=== PATIENT | female | born 1945 | race African-American/Black ===

== ENCOUNTER 2018-08-06 12:27 | Inpatient (IN) | payer MEDICARE, OTHER ==
[2018-08-06] MEDS ORDERED: SODIUM CHLORIDE 1,000 ML IV SCH (12:45)
[2018-08-06 13:14] LABS: BASO % 0.8 % (0-2.0); EOS % 4.3 % (0-4.5); HEMOGLOBIN 13.6 GM/dL (10.7-15.3); LYMPH % 20.7 % (8-40); MCH 29.4 pg (25.7-33.7); MCHC 34.1 g/dl (32.0-36.0); MEAN CELL VOLUME 86.4 fl (80-96); MEAN PLT VOLUME 10.1 fl (7.5-11.1); MONO % 9.5 % (3.8-10.2); NEUT % 64.7 % (42.8-82.8); PLATELET COUNT 170 K/MM3 (134-434); RBC 4.64 M/mm3 (3.60-5.2); RDW 13.4 % (11.6-15.6); WHITE BLOOD COUNT 7.1 K/mm3 (4.0-10.0)
[2018-08-06] MEDS ORDERED: DEXTROSE 50%-WATER 25 GM/50 ML DISP.SYRIN ONE (13:17)
--- NOTE | 2018-08-06 13:23 | PDOC ---
History of Present Illness <Martin Castro - Last Filed: 08/06/18 13:28> - History of Present Illness Initial Comments: 73yo F with PMH of HTN, HLD, DM presenting with altered mental status. Daughter reported that patient was opening [place] presents around 10:30am when she suddenly froze, was slow to respond to questions, and only able to answer yes or no. Daughter reports that the patient has slowly returned to her baseline and able to answer questions. Denies any motor deficits or unilateral weakness. No fevers, chills, chest pain, or shortness of breath. <Josie Waters - Last Filed: 08/06/18 18:39> - General Chief Complaint: Altered Mental Status Stated Complaint: R/O STROKE Time Seen by Provider: 08/06/18 12:40 NIH Stroke Scale - Last Known Well Date/Time & Onset Date Last Known Well: 08/06/18 Time Last Known Well: 10:30 - Initial Evaluation Level of consciousness: Alert Ask patient the month and their age: Answers both correctly Ask patient to open & close eyes; make fist and let go: Obeys both correctly Best gaze (horizontal eye movement): Normal Visual field testing: No visual field loss Facial paresis (Show teeth/raise eyebrows/close eyes tight): Normal symmetrical movement Motor Function: Left Arm: Normal Motor Function: Right Arm: Normal (extends arm 90 (or 45) degrees for 10 seconds without drift Motor Function: Left Leg: Normal (extends leg 30 degrees for 5 seconds without drift) Motor Function: Right Leg: Normal (extends leg 30 degrees for 5 seconds without drift) Limb Ataxia: No ataxia Sensory(Use pinprick test arms,legs,trunk,face/side to side): Normal Best language (Describe picture, name items, read sentences): No Aphasia Dysarthria (read several words): Normal articulation Extinction and Inattention: No abnormality - Total Score NIH Stroke Scale Score: 0 <Josie Waters - Last Filed: 08/06/18 18:39> tPA Exclusion Checklist 0-3hr - Time Elapsed Date last known well: 08/06/18 Time last known well: 10:30 Elaspsed time: Day(s) and 8 Hour(s) and 7 Minutes - Thrombolytic Therapy Candidate Is the patient eligible for Thrombolytic Therapy?: No - Exclusion Criteria 0-3hr SBP greater than 185 or DBP greater than 110mmHg despite tx: Yes Recent IC/spinal surgery,head trauma or stroke w/in last 3mo: No Hx of previous IC hemorrhage, IC neoplasm, AVM or aneurysm: No Active internal bleeding: No Blding diathesis(low plt ct, inc PTT,INR>1.7 or use of NOAC): No Symptoms suggest subarachnoid hemorrhage: No CT demonstrates multilobar infarct(>1/3 cerebral hemiphere): No Arterial puncture at noncompressible site in previous 7 days: No Blood glucose concentration less than 50mg/dL (2.7mmol/L): Yes - Relative Exclusion Criteria 0-3h Life expectancy <1yr/severe co-morbid illness/REFERRAL CLERK on admit: No : No Patient/family refused: No Rapid improvement: No Stroke severity too mild: No Recent acute [place] (w/in previous 3 months): No Seizure at onset with postictal residual neuro impairments: No Major surgery or serious trauma w/in previous 14 days: No Recent GI or hemorrhage (w/in previous 21 days): No - Ineligibility reason(s) Reasons No tPA given: See reason(s) noted above (glc=22, SBP>185, NIHSS 0 after D50 administration) <Josie Waters - Last Filed: 08/06/18 18:39> Past History <Martin Castro - Last Filed: 08/06/18 13:28> - Past Medical History COPD: No Diabetes: Yes HTN: Yes - Suicide/Smoking/Psychosocial Hx Smoking History: Never smoked Have you smoked in the past 12 months: No Information on smoking cessation initiated: No Hx Alcohol Use: No Drug/Substance Use Hx: No <Josie Waters - Last Filed: 08/06/18 18:39> - Past Medical History Allergies/Adverse Reactions: Allergies Allergy/AdvReac Type Severity Reaction Status Date / Time amlodipine [From [facility]] Allergy Verified 08/06/18 12:38 Home Medications: Ambulatory Orders Aspirin [ASA -] 325 mg PO DAILY 08/06/18 Glipizide 5 mg PO BID 08/06/18 Hydrochlorothiazide 25 mg PO DAILY 08/06/18 Lisinopril 20 mg PO BID 08/06/18 Simvastatin 10 mg PO HS 08/06/18 Review of Systems - Review of Systems Comments:: Constitutional: no fever, no chills HEENT: no throat pain, no dysphagia Cardiovascular: no chest pain, no palpitations Respiratory: no cough, no shortness of breath Gastrointestinal: no abdominal pain, no nausea, no vomiting Genitourinary: no dysuria, no frequency Musculoskeletal: no myalgia, no arthralgia Skin: no rash, no itching Neurologic: no headache, no dizziness <SoJosie - Last Filed: 08/06/18 18:39> *Physical Exam - Vital Signs Last Vital Signs Temp Pulse Resp BP Pulse Ox 97.5 F L 49 L 16 248/97 H 100 08/06/18 12:34 08/06/18 12:34 08/06/18 12:34 08/06/18 12:34 08/06/18 12:34 <Ou,Martin - Last Filed: 08/06/18 13:28> - Vital Signs Last Vital Signs Temp Pulse Resp BP Pulse Ox 97.5 F L 49 L 16 248/97 H 100 08/06/18 12:34 08/06/18 12:34 08/06/18 12:34 08/06/18 12:34 08/06/18 12:34 - Physical Exam Comments: General: Awake, alert, and fully oriented, in no acute distress Head: No signs of trauma Eyes: EOMI, sclera anicteric ENT: Moist mucus membranes Neck: Normal ROM, supple Lungs: Lungs clear, Normal breath sounds Cardio: Regular rhythm, S1 and S2 present Abdomen: Soft, nontender. No guarding, no rebound, no masses Extremities: Normal range of motion, Distal pulses present SKIN: Warm, Dry, normal turgor Neurologic: Cranial nerves II through XII intact. Normal speech, sensation, strength, coordination. NIHSS 0 <SoLauraJosie - Last Filed: 08/06/18 18:39> Moderate Sedation - Procedure Monitoring Vital Signs: Procedure Monitoring Vital Signs Temperature 97.5 F L 08/06/18 12:34 Pulse Rate 49 L 08/06/18 12:34 Respiratory Rate 16 08/06/18 12:34 Blood Pressure 248/97 H 08/06/18 12:34 O2 Sat by Pulse Oximetry (%) 100 08/06/18 12:34 <Ou,Martin - Last Filed: 08/06/18 13:28> - Procedure Monitoring Vital Signs: Procedure Monitoring Vital Signs Temperature 97.5 F L 08/06/18 12:34 Pulse Rate 49 L 08/06/18 12:34 Respiratory Rate 16 08/06/18 12:34 Blood Pressure 248/97 H 08/06/18 12:34 O2 Sat by Pulse Oximetry (%) 100 08/06/18 12:34 <Josie Waters - Last Filed: 08/06/18 18:39> ED Treatment Course - LABORATORY CBC & Chemistry Diagram: 08/06/18 13:09 08/06/18 13:09 - ADDITIONAL ORDERS Additional order review: 08/06/18 13:09 RBC 4.64 MCV 86.4 MCHC 34.1 RDW 13.4 MPV 10.1 Neutrophils % 64.7 Lymphocytes % 20.7 Monocytes % 9.5 Eosinophils % 4.3 Basophils % 0.8 - RADIOLOGY Radiology Studies Ordered: Category Date Time Status HEAD CT (STROKE) [CT] Stat CT Scan 08/06/18 12:41 Completed <Martin Castro - Last Filed: 08/06/18 13:28> - LABORATORY CBC & Chemistry Diagram: 08/06/18 13:09 08/06/18 13:09 - ADDITIONAL ORDERS Additional order review: 08/06/18 13:09 RBC 4.64 MCV 86.4 MCHC 34.1 RDW 13.4 MPV 10.1 Neutrophils % 64.7 Lymphocytes % 20.7 Monocytes % 9.5 Eosinophils % 4.3 Basophils % 0.8 <Josie Waters - Last Filed: 08/06/18 18:39> Medical Decision Making - Medical Decision Making 73yo F with PMH of HTN, HLD, DM presenting with altered mental status. Code Snell initiated CT head negative Initial NIHSS was 2 (patient unable to state her age, along with moderate aphasia) Found to have glucose 22, D50 given Repeat NIHSS 0 Patient hypertensive, 248/97 on triage Hydralazine 10 given, still systolic >250 Nitro drip initiated, systolic now 190s Repeat glc [address] Ortiz, timber management assistant, who agrees with current nitro drip. 08/06/18 13:27 EKG: rate 64, QTc 453, sinus rhythm with flipped t waves in lateral distribution (no priors) Tpn=0.15, elevated No leukocytosis or anemia, Cr=1.9, elevated, Plan to admit to ICU for hypertensive emergency. While patient does not have acute complaints, her confusion, elevated Tpn and Cr indicate signs of end- organ damage. 08/06/18 14:51 Discussed case with hospitalist team who accepted patient for admission under Dr. Cardona Discussed case with ICU team who accepted patient for ICU admission under Dr. Jason 08/06/18 15:13 Repeat Tpn ordered and sent 08/06/18 18:35 <Josie Waters - Last Filed: 08/06/18 18:39> *DC/Admit/Observation/Transfer <Martin Castro - Last Filed: 08/06/18 13:28> - Discharge Dispostion Decision to Admit order: Yes <Josie Waters - Last Filed: 08/06/18 18:39> Diagnosis at time of Disposition: Hypertensive emergency - Discharge Dispostion Condition at time of disposition: Guarded
[2018-08-06 13:29] LABS: INR 1.08 (0.83-1.09); PROTHROMBIN TIME (PATIENT) 12.7 SEC (9.7-13.0)
[2018-08-06] MEDS ORDERED: DEXTROSE 50%-WATER - 25 GM/50 ML VIAL IVPUSH ONE (13:29)
--- NOTE | 2018-08-06 13:40 | PDOC ---
Attending Attestation - Resident Resident Name: Josie Waters - ED Attending Attestation I have performed the following: I have examined & evaluated the patient, The case was reviewed & discussed with the resident, I agree w/resident's findings & plan, Exceptions are as noted - HPI HPI: 08/06/18 13:38 The patient is a 73-year-old female with a past medical history significant for DM, HTN, HLD presents to the emergency department accompanied by her daughter with altered mental status. Per daughter, at 10:30 am, the family was opening presents when patient "froze", sitting still and staring into space. Pt was still responsive but very slow to answer. The daughter reports the patient was only responding to yes or no questions. Prior to 10:30am, pt was at her baseline mentation. The daughter reports a similar incident about 4 months ago, the patient froze for 15 minutes, before spontaneously resolving. DId not seek medical attention at the time. Denies fever, chills, chest pain, numbness, tingling, diaphoresis. Allergies: amlodipine Social history: No past or present use of tobacco, alcohol or recreational drug use. PCP: None reported. - Physicial Exam PE: 08/06/18 13:38 "GENERAL: Awake, alert, and fully oriented, in no acute distress. HEAD: No signs of trauma EYES: PERRLA, EOMI, sclera anicteric, conjunctiva clear ENT: Auricles normal inspection, hearing grossly normal, nares patent, oropharynx clear without exudates. Moist mucosa NECK: Nontender, no stepoffs, Normal ROM, supple, no lymphadenopathy, JVD, or masses LUNGS: Breath sounds equal, clear to auscultation bilaterally. No wheezes, and no crackles HEART: Regular rate and rhythm, normal S1 and S2, no murmurs, rubs or gallops ABDOMEN: Soft, nontender, normoactive bowel sounds. No guarding, no rebound. No masses EXTREMITIES: Normal range of motion, no edema. No clubbing or cyanosis. No cords, erythema, or tenderness NEUROLOGICAL: Cranial nerves II through XII intact. 5/5 strength and sensation in all extremities, Normal speech, normal gait, normal cerebellar function SKIN: Warm, Dry, normal turgor, no rashes or lesions noted. - Critical Care Time Total Critical Care Time: 120 Critical Care Statement: The care of this patient involved high complexity decision making to prevent further life threatening deterioration of the patient 's condition and/or to evaluate & treat vital organ system(s) failure or risk of failure. - Medical Decision Making 08/06/18 13:39 73 F with acute onset altered mental status, found to be mildly aphasic in ED without any other neuro deficits. Pt with fingerstick 22, likely etiology of pt' s AMS. Pt within window for tPA but NIHSS only 1 and pt hypoglycemic. tPA contraindicated at this time. - Labs - CT head - D50 PRN - Reassess 08/06/18 13:[address] negative Repeat exam after D50 push now normal, NIHSS 0. Pt persistently HTN in ED, with SBP >260. Will administer hydralazine now. Pt denies CP/SOB. Denies JUAREZ. 08/06/18 14:03 Pt with + troponin 0.15 EKG shows TWI in lateral leads, no prior to compare Will tx as hypertensive emergency Will initiate nitro gtt, give aspirin 08/06/18 15:11 Dr. Ortiz consulted, agrees with nitro gtt, will administer PO meds as well. Pt admitted to hospitalist NIH Stroke Scale - Last Known Well Date/Time & Onset Date Last Known Well: 08/06/18 Time Last Known Well: 10:30 - Initial Evaluation Level of consciousness: Alert Ask patient the month and their age: Answers both correctly Ask patient to open & close eyes; make fist and let go: Obeys both correctly Best gaze (horizontal eye movement): Normal Visual field testing: No visual field loss Facial paresis (Show teeth/raise eyebrows/close eyes tight): Normal symmetrical movement Motor Function: Left Arm: Normal Motor Function: Right Arm: Normal (extends arm 90 (or 45) degrees for 10 seconds without drift Motor Function: Left Leg: Normal (extends leg 30 degrees for 5 seconds without drift) Motor Function: Right Leg: Normal (extends leg 30 degrees for 5 seconds without drift) Limb Ataxia: No ataxia Sensory(Use pinprick test arms,legs,trunk,face/side to side): Normal Best language (Describe picture, name items, read sentences): Mild to moderate aphasia Dysarthria (read several words): Normal articulation Extinction and Inattention: No abnormality - Total Score NIH Stroke Scale Score: 1
[2018-08-06] MEDS ORDERED: hydrALAZINE HCL 20 MG/ML VIAL IVPUSH ONE ×2 (13:46→14:11)
[2018-08-06 13:49] LABS: ALBUMIN 3.6 g/dl (3.4-5.0); ALK PHOS 67 U/L (45-117); ANION GAP 10 MMOL/L (8-16); BILIRUBIN,TOTAL 0.4 mg/dL (0.2-1); BLOOD UREA NITROGEN 36 mg/dL (7-18); CALCIUM 8.6 mg/dL (8.5-10.1); CHLORIDE 105 mmol/L (98-107); CHOLESTEROL 174 mg/dL (50-200); CO2 27 mmol/L (21-32); CREATININE 1.9 mg/dL (0.55-1.3); HDL CHOLESTEROL 97 mg/dL (40-60); SGOT/AST 35 U/L (15-37); SGPT/ALT 23 U/L (13-61); SODIUM 142 mmol/L (136-145); TOT PROT 7.9 g/dl (6.4-8.2); TRIGLYCERIDES 74 mg/dL (0-150)
[2018-08-06] MEDS ORDERED: hydrALAZINE HCL 20 MG/ML VIAL ONE (13:58)
[2018-08-06 14:05] LABS: GLUCOSE,RANDOM 31 mg/dL (74-106)
[2018-08-06] MEDS ORDERED: NITROGLYCERIN 25MG/D5W 250ML 25 MG/250 ML ML IVPB ONE (14:14)
[2018-08-06] MEDS: NITROGLYCERIN 25MG/D5W 250ML 25 MG/250 ML ML IVPB SCH (14:27)
[2018-08-06 14:29] LABS: URINE APPEARANCE CLEAR; URINE BILIRUBIN NEGATIVE (<2.0 mg/dL); URINE COLOR STRAW; URINE GLUCOSE (UA) 2+ (NEGATIVE); URINE KETONE NEGATIVE (NEGATIVE); URINE LEUK ESTERASE NEGATIVE (NEGATIVE); URINE NITRITE NEGATIVE (NEGATIVE); URINE PROTEIN NEGATIVE (NEGATIVE); URINE UROBILINOGEN NEGATIVE mg/dL (0.2-1.0)
--- NOTE | 2018-08-06 15:28 | CONSULT ---
Consultation: REQUESTING PROVIDER: Dr. Castro CONSULT REQUEST: Evaluation for hypertensive emergency requiring a Nitro gtt HISTORY OF PRESENT ILLNESS: The patient is a 73F w/ a history of HTN, T2DM, HLD, MVP who presents for evaluation of a sudden onset episode where she felt 'frozen'. She states she has never has an experience like this before. She describes it as feeling as though she was unable to move as usual. However, she was still able to speak throughout the experience and per both the patient and the daughter, she never lost consciousness nor did she fall. Upon presentation to the ED, the patient was found to be altered and hypoglycemic. The patient was given dextrose and her subsequent NIHSS was 0. Upon evaluation, she denies any symptoms including JUAREZ, vision changes, chest pain, SOB, N/V, or dizziness. Of note, patient reports being compliant w/ antihypertensive medications at home. (Lisinopril/HCTZ). Was on labetalol in the past. PMH: HTN, T2DM, HLD, MVP PSH: Oral lesion removal, partial HYS SH: denies tobacco use, social EtOH, denies illicit drug use REVIEW OF SYSTEMS: GENERAL/CONSTITUTIONAL: No fever or chills. No weakness HEAD, EYES, EARS, NOSE AND THROAT: No change in vision. No ear pain or discharge. No sore throat CARDIOVASCULAR: No chest pain or shortness of breath RESPIRATORY: Denies cough, hemoptysis GASTROINTESTINAL: No nausea, vomiting, diarrhea or constipation GENITOURINARY: No dysuria, frequency, or change in urination MUSCULOSKELETAL: No joint or muscle swelling or pain. No neck or back pain SKIN: No rash NEUROLOGIC: No vertigo, loss of consciousness, or change in strength/sensation ENDOCRINE: No increased thirst. No abnormal weight change HEMATOLOGIC/LYMPHATIC: No anemia, easy bleeding, or history of blood clots ALLERGIC/IMMUNOLOGIC: No hives or skin allergy PHYSICAL EXAMINATION Vital Signs - 24 hr 08/06/18 08/06/18 08/06/18 12:34 14:11 14:28 Temperature 97.5 F L Pulse Rate 49 L Pulse Rate [ 80 Apical] Respiratory 16 16 Rate Blood Pressure 248/97 H Blood Pressure 260/124 H 197/96 H [Right Arm] O2 Sat by Pulse 100 100 Oximetry (%) GENERAL: Awake, alert, and fully oriented, in no acute distress HEAD: No signs of trauma, normocephalic, atraumatic EYES: PERRLA, EOMI, sclera anicteric, conjunctiva clear ENT: Hearing grossly normal, nares patent, oropharynx clear without exudates. Moist mucosa LUNGS: No distress, speaks full sentences, clear to auscultation bilaterally HEART: Regular rate and rhythm, normal S1 and S2, no murmurs appreciated, peripheral pulses normal and equal bilaterally ABDOMEN: Soft, nontender, normoactive bowel sounds. No guarding, no rebound EXTREMITIES : Normal inspection, Normal range of motion, no edema. No clubbing or cyanosis NEUROLOGICAL: Cranial nerves II through XII grossly intact. Normal speech, no focal sensorimotor deficits SKIN: Warm, Dry Active Medications Generic Name Dose Route Start Last Admin Trade Name Freq PRN Reason Stop Dose Admin Chlorhexidine Gluconate 1 applic 08/06/18 22:00 Hibiclens For Decolonization - TP HS CHAIM Sodium Chloride 1,000 mls @ 42 mls/hr 08/06/18 12:45 08/06/18 14:27 Normal Saline - IV 42 mls/hr ASDIR CHAIM Administration Nitroglycerin/Dextrose 25 mg in 250 mls @ 6 mls/hr 08/06/18 14:15 08/06/18 14 :27 Nitroglycerin 25mg/D5w 250ml IVPB 10 mcg/min TITR CHAIM 6 mls/hr Administration 10 MCG/MIN Insulin Aspart 0 vial 08/06/18 16:30 Novolog Vial Sliding Scale - SQ [facility]S [facility] Protocol Mupirocin 1 applic 08/06/18 22:00 Bactroban Ointment (For Decolonization) - NS 08/11/18 21:59 BID CHAIM ASSESSMENT/PLAN: The patient is a 73F w/ a history HTN, HLD, and MVP who presents for evaluation of hypertensive emergency, BP 248/97 on arrival w/ associated troponinemia. The patient was initially given hydralazine with little effect and was subsequently started on a nitro gtt with interval improvement to SBP 190s. Ddx: stroke v TIA, hypoglycemia, HTN emergency; possible lyte abn, however lytes at baseline in ED Neuro AMS -A&Ox3 -CT Head w/o evidence of bleed -Pt pending MRI for further evaluation Denies pain currently CV Hypertensive Emergency -Cont. Nitro gtt -Goal SBP 190s initially -Repeat Trop I and ECG Troponinemia (0.15) -Likely demand ischemia -Will repeat Trop I and ECG -Denies chest pain, SOB, dizziness, or vision changes HLD -Continue home simvastatin PULM Breathing comfortably on room air, will CTM JESSE -Cr 1.9 -Will hold home lisinopril HEME No anemia, will CTM DVT Ppx -Lovenox 40mg SQ daily ID Afebrile, no leukocytosis ENDO T2DM -Will hold home glipizide -ISS -BGM Hypoglycemia -BG 31, s/p dextrose, resolved -Hold home glipizide today LTD PIV Dispo: Patient will require ICU level of care for acute management of hypertensive emergency Visit type - Emergency Visit Emergency Visit: Yes ED Registration Date: 08/06/18 Care time: The patient presented to the Emergency Department on the above date and was hospitalized for further evaluation of their emergent condition. - New Patient This patient is new to me today: Yes Date on this admission: 08/06/18 - Critical Care Critical Care patient: Yes Total Critical Care Time (in minutes): 35 Critical Care Statement: The care of this patient involved high complexity decision making to prevent further life threatening deterioration of the patient 's condition and/or to evaluate & treat vital organ system(s) failure or risk of failure.
--- NOTE | 2018-08-06 15:45 | CON.NEURO ---
Consult Consult Specialty:: Natan Referred by:: PCP Reason for Consultation:: Aphasia - History of Present Illness History of Present Illness: this is a very pleasant 73-year-old right-handed -[place] woman who lives in [place] retired was visiting her daughter for holiday in [facility] when she had sudden onset of altered sensorium and difficulty expressing herself. Patient was brought into the hospital in the emergency room stroke protocol was initiated CAT scan of the head was negative for any acute pathology. Patient was noted to be hemodynamically unstable with a blood pressure systolic above 200. Patient was not complaining of any headache patient was noted to have fingerstick of 22. Patient received glucose with good reversal of her symptoms. Patient was not a good candidate for TPA given the fact that her NIH stroke scale was 2 that was reversed with a sugar correction. I interviewed the patient in the emergency room at 3:10 PM. The daughter was at the bedside. Registered nurse she affirms that the patient's back to normal. No report of any recent travel no report of any recent head trauma. He shouldn't denies any chest pain mild headache. Patient wants to go home initially and after conversation with the patient she agreed to stay for monitoring repeat blood pressure was in the 190s systolic. - History Source History Provided By: Patient Limitations to Obtaining History: No Limitations - Alcohol/Substance Use Hx Alcohol Use: No - Smoking History Smoking history: Never smoked Have you smoked in the past 12 months: No Home Medications - Allergies Allergies/Adverse Reactions: Allergies Allergy/AdvReac Type Severity Reaction Status Date / Time amlodipine [From [facility]] Allergy Verified 08/06/18 12:38 - Home Medications Home Medications: Ambulatory Orders Aspirin [ASA -] 325 mg PO DAILY 08/06/18 Glipizide 5 mg PO BID 08/06/18 Hydrochlorothiazide 25 mg PO DAILY 08/06/18 Lisinopril 20 mg PO BID 08/06/18 Simvastatin 10 mg PO HS 08/06/18 Family Disease History - Family Disease History Family History: Denies (strokes) Review of Systems - Review of Systems Constitutional: reports: No Symptoms Eyes: reports: No Symptoms Neurological: reports: Headache, Incoordination Physical Exam-Neuro Vital Signs: Vital Signs Temperature 97.5 F L 08/06/18 12:34 Pulse Rate 80 08/06/18 14:28 Respiratory Rate 16 08/06/18 14:28 Blood Pressure 197/96 H 08/06/18 14:28 O2 Sat by Pulse Oximetry (%) 100 08/06/18 14:28 Constitutional: Yes: Well Nourished Neck: Yes: WNL Cardiovascular: Yes: WNL Labs: CBC, BMP 08/06/18 13:09 08/06/18 13:09 INR, PTT INR 1.08 (0.83-1.09) 08/06/18 13:09 - Neuro Exam Level Of Consciousness: Yes: Oriented to Person, Oriented to Place, Oriented to Time Eyes: Yes: PERRLA Speech: WNL Dominant Hand: Right Cranial Nerves II-XII Intact: Yes Gag: Present DTR's: 1+ Left Bicep, 1+ Right Bicep, 1+ Left Tricep Response to pain prick: Abnormal Response to temperature: Abnormal Response to vibration: Abnormal Motor Strength: 3/5: Left Arm, Right Arm, Left Leg, Right Leg Gait: Deferred NIH Stroke Scale - Last Known Well Date/Time & Onset Date Last Known Well: 08/06/18 Time Last Known Well: 10:30 - Initial Evaluation Level of consciousness: Alert Ask patient the month and their age: Answers both correctly Ask patient to open & close eyes; make fist and let go: Obeys both correctly Best gaze (horizontal eye movement): Normal Visual field testing: No visual field loss Facial paresis (Show teeth/raise eyebrows/close eyes tight): Normal symmetrical movement Motor Function: Left Arm: Normal Motor Function: Right Arm: Normal (extends arm 90 (or 45) degrees for 10 seconds without drift Motor Function: Left Leg: Normal (extends leg 30 degrees for 5 seconds without drift) Motor Function: Right Leg: Normal (extends leg 30 degrees for 5 seconds without drift) Limb Ataxia: No ataxia Sensory(Use pinprick test arms,legs,trunk,face/side to side): Normal Best language (Describe picture, name items, read sentences): No Aphasia Dysarthria (read several words): Normal articulation Extinction and Inattention: No abnormality - Total Score NIH Stroke Scale Score: 0 Imaging - Results Cat Scan: Image Reviewed Problem List - Problems (1) TIA (transient ischemic attack) Assessment/Plan: 1. Admit to the monitored setting. 2. Tight blood pressure control. 3. MRI of the brain with no contrast. 4. DVT prophylaxis SCDs 5. echocardiogram. 6. Continue the full aspirin. 7. Continue statin 8. Speech and swallow evaluation. Code(s): G45.9 - TRANSIENT CEREBRAL ISCHEMIC ATTACK, UNSPECIFIED (2) Hypertensive emergency Assessment/Plan: tight blood pressure control. 2. Decrease salt intake. 3. Suggest renal artery ultrasound. 4. Stroke education. Code(s): I16.1 - HYPERTENSIVE EMERGENCY
--- NOTE | 2018-08-06 15:57 | PN ---
Teaching Attending Note Name of Resident: Gurpreet Alejo ATTENDING PHYSICIAN STATEMENT I saw and evaluated the patient. I reviewed the resident's note and discussed the case with the resident. I agree with the resident's findings and plan as documented. SUBJECTIVE: Patient is a 73 yo F with a PMHx of HTN, DM, HLD, who presented to the ED because of confusion and altered mental status that occurred around 10:30am. Patient was found to have low blood sugar in ed. level was 37 received D50. was back to her normal sense, also was found to have blood pleasure of 240's/120 's. OBJECTIVE: Initial Vital Signs Temp Pulse Resp BP Pulse Ox 97.5 F L 49 L 16 248/97 H 100 08/06/18 12:34 08/06/18 12:34 08/06/18 12:34 08/06/18 12:34 08/06/18 12:34 Vital Signs Temperature 97.5 F L 08/06/18 12:34 Pulse Rate 80 08/06/18 14:28 Respiratory Rate 16 08/06/18 14:28 Blood Pressure 197/96 H 08/06/18 14:28 O2 Sat by Pulse Oximetry (%) 100 08/06/18 14:28 GENERAL: Awake, alert, and fully oriented, in no acute distress. EYES: Pupils equal, round and reactive to light, extraocular movements intact, injected pupils EARS, NOSE, THROAT: oropharynx clear without exudates. Moist mucous membranes. NECK: supple without lymphadenopathy, JVD, or masses. LUNGS: Breath sounds equal, clear to auscultation bilaterally HEART: Regular rate and rhythm, normal S1 and S2 without murmur, rub or gallop. ABDOMEN: Soft, nontender, not distended, normoactive bowel sounds MUSCULOSKELETAL: Normal range of motion at all joints. No bony deformities or tenderness. No CVA tenderness. EXTREMITIES: 2+ pulses, warm, well-perfused. No cyanosis. No peripheral edema. NEUROLOGICAL: Cranial nerves II-XII intact. Normal speech. no facial droop. symmetrical face. PSYCHIATRIC: Cooperative. Good eye contact. Appropriate mood and affect. Current Medications Generic Name Dose Route Start Last Admin Trade Name Freq PRN Reason Stop Dose Admin Chlorhexidine Gluconate 1 applic 08/06/18 22:00 Hibiclens For Decolonization - TP HS CHAIM Sodium Chloride 1,000 mls @ 42 mls/hr 08/06/18 12:45 08/06/18 14:27 Normal Saline - IV 42 mls/hr ASDIR CHAMI Administration Nitroglycerin/Dextrose 25 mg in 250 mls @ 6 mls/hr 08/06/18 14:15 08/06/18 14 :27 Nitroglycerin 25mg/D5w 250ml IVPB 10 mcg/min TITR CHAIM 6 mls/hr Administration 10 MCG/MIN Insulin Aspart 1 vial 08/06/18 16:30 Novolog Vial Sliding Scale - SQ ACHS [facility] Protocol Mupirocin 1 applic 08/06/18 22:00 Bactroban Ointment (For Decolonization) - NS 08/11/18 21:59 BID [facility] Home Medications Medication Instructions Recorded Aspirin [ASA -] 325 mg PO DAILY 08/06/18 Glipizide 5 mg PO BID 08/06/18 Hydrochlorothiazide 25 mg PO DAILY 08/06/18 Lisinopril 20 mg PO BID 08/06/18 Simvastatin 10 mg PO HS 08/06/18 CBCD WBC 7.1 K/mm3 (4.0-10.0) 08/06/18 13:09 RBC 4.64 M/mm3 (3.60-5.2) 08/06/18 13:09 Hgb 13.6 GM/dL (10.7-15.3) 08/06/18 13:09 Hct 40.0 % (32.4-45.2) 08/06/18 13:09 MCV 86.4 fl (80-96) 08/06/18 13:09 MCHC 34.1 g/dl (32.0-36.0) 08/06/18 13:09 RDW 13.4 % (11.6-15.6) 08/06/18 13:09 Plt Count 170 K/MM3 (134-434) 08/06/18 13:09 MPV 10.1 fl (7.5-11.1) 08/06/18 13:09 CMP Sodium 142 mmol/L (136-145) 08/06/18 13:09 Potassium 3.0 mmol/L (3.5-5.1) L 08/06/18 13:09 Chloride 105 mmol/L (98-107) 08/06/18 13:09 Carbon Dioxide 27 mmol/L (21-32) 08/06/18 13:09 Anion Gap 10 MMOL/L (8-16) 08/06/18 13:09 BUN 36 mg/dL (7-18) H 08/06/18 13:09 Creatinine 1.9 mg/dL (0.55-1.3) H 08/06/18 13:09 Creat Clearance w eGFR 26.06 (>60) 08/06/18 13:09 Random Glucose 31 mg/dL (74-106) L* 08/06/18 13:09 Calcium 8.6 mg/dL (8.5-10.1) 08/06/18 13:09 Total Bilirubin 0.4 mg/dL (0.2-1) 08/06/18 13:09 AST 35 U/L (15-37) 08/06/18 13:09 ALT 23 U/L (13-61) 08/06/18 13:09 Alkaline Phosphatase 67 U/L (45-117) 08/06/18 13:09 Total Protein 7.9 g/dl (6.4-8.2) 08/06/18 13:09 Albumin 3.6 g/dl (3.4-5.0) 08/06/18 13:09 CARDIAC ENZYMES Creatine Kinase 267 IU/L (26-192) H 08/06/18 13:09 Troponin I 0.13 ng/ml (0.00-0.05) H 08/06/18 18:01 ASSESSMENT AND PLAN: Patient is a 73yo Female with a PMHx of HTN, DM, HLD, who presented to the ED because of acute change of mental status confusion and altered mental status and was found to have hypertensive emergency and low blood sugar. #Acute change mental status due to having hypoglycemia and hypertensive emergency. patient is on Glyberide at home, might need to reduce the dose since can cause hypoglycemia and add metformin to her regimen. will admit her in ICU , start her nitro drip since was found to have an ischemic changes on the EKG . aspirin, neuro check, cardio consult dr. cabrera. #Hypertensive Emergency: on Nitro srip continue #Hypoglycemia: D50 given, careful upon discharge , reduce the dose of glyberide to 2.5mg and add metformin since shari't cause hypoglycemia. monitor kidney function. ss scale with coverage #Elevated troponin: likely demand, EKG with T wave inversions in lateral leads, with no priors to compare ECHO in AM #JESSE , nephro in the case . IV fluids, hold lisinopril VT ppx: heparin sq Dispo: ICU monitoring
--- NOTE | 2018-08-06 16:08 | HP ---
CHIEF COMPLAINT: AMS HISTORY OF PRESENT ILLNESS: Patient is a 73 yo F with a PMHx of HTN, DM, HLD, who presented to the ED because of confusion and altered mental status that occurred around 10:30am. The daughter says patient was awake but not responsive to commands for a few hours. The daughter states her mother "froze" while opening Vilma presents and was staring into space. Patient says her hypertension is usually well controlled with Lisinopril and HCTZ. She says this never happened to her before. Daughter denies shaking movements, tongue biting, loss of bladder control. Patient denies weakness, numbness, tingling, chest pain , palpitations, sob, edema, fevers. ER course was notable for: (1) Pt persistently HTN in ED, with SBP >260 (2) Glucose 31 (3) Head CT unremarkable Recent Travel: n/a PAST MEDICAL HISTORY: per hpi Social History: Smoking: denies Alcohol:denies Drugs: denies Family History: Allergies amlodipine [From [facility]] Allergy (Verified 08/06/18 12:38) HOME MEDICATIONS: Home Medications Medication Instructions Recorded Aspirin [ASA -] 325 mg PO DAILY 08/06/18 Glipizide 5 mg PO BID 08/06/18 Hydrochlorothiazide 25 mg PO DAILY 08/06/18 Lisinopril 20 mg PO BID 08/06/18 Simvastatin 10 mg PO HS 08/06/18 REVIEW OF SYSTEMS CONSTITUTIONAL: Absent: fever, chills, diaphoresis, generalized weakness, malaise, loss of appetite, weight change HEENT: Absent: rhinorrhea, nasal congestion, throat pain, throat swelling, difficulty swallowing, mouth swelling, ear pain, eye pain, visual changes CARDIOVASCULAR: Absent: chest pain, syncope, palpitations, irregular heart rate, lightheadedness , peripheral edema RESPIRATORY: Absent: cough, shortness of breath, dyspnea with exertion, orthopnea, wheezing, stridor, hemoptysis GASTROINTESTINAL: Absent: abdominal pain, abdominal distension, nausea, vomiting, diarrhea, constipation, melena, hematochezia GENITOURINARY: Absent: dysuria, frequency, urgency, hesitancy, hematuria, flank pain, genital pain MUSCULOSKELETAL: Absent: myalgia, arthralgia, joint swelling, back pain, neck pain SKIN: Absent: rash, itching, pallor HEMATOLOGIC/IMMUNOLOGIC: Absent: easy bleeding, easy bruising, lymphadenopathy, frequent infections ENDOCRINE: Absent: unexplained weight gain, unexplained weight loss, heat intolerance, cold intolerance NEUROLOGIC: Absent: headache, focal weakness or paresthesias, dizziness, unsteady gait, seizure, mental status changes, bladder or bowel incontinence PSYCHIATRIC: Absent: anxiety, depression, suicidal or homicidal ideation, hallucinations. PHYSICAL EXAMINATION Vital Signs - 24 hr 08/06/18 08/06/18 08/06/18 12:34 14:11 14:28 Temperature 97.5 F L Pulse Rate 49 L Pulse Rate [ 80 Apical] Respiratory 16 16 Rate Blood Pressure 248/97 H Blood Pressure 260/124 H 197/96 H [Right Arm] O2 Sat by Pulse 100 100 Oximetry (%) GENERAL: Awake, alert, and fully oriented, in no acute distress. EYES: Pupils equal, round and reactive to light, extraocular movements intact, injected pupils EARS, NOSE, THROAT: oropharynx clear without exudates. Moist mucous membranes. NECK: supple without lymphadenopathy, JVD, or masses. LUNGS: Breath sounds equal, clear to auscultation bilaterally HEART: Regular rate and rhythm, normal S1 and S2 without murmur, rub or gallop. ABDOMEN: Soft, nontender, not distended, normoactive bowel sounds MUSCULOSKELETAL: Normal range of motion at all joints. No bony deformities or tenderness. No CVA tenderness. UPPER EXTREMITIES: 2+ pulses, warm, well-perfused. No cyanosis. No peripheral edema. LOWER EXTREMITIES: 2+ pulses, warm, well-perfused. No calf tenderness. No peripheral edema. NEUROLOGICAL: Cranial nerves II-XII intact. Normal speech. no facial droop. symmetrical face. PSYCHIATRIC: Cooperative. Good eye contact. Appropriate mood and affect. Laboratory Results - last 24 hr 08/06/18 08/06/18 08/06/18 13:09 13:09 13:09 WBC 7.1 RBC 4.64 Hgb 13.6 Hct 40.0 MCV 86.4 MCH 29.4 MCHC 34.1 RDW 13.4 Plt Count 170 MPV 10.1 Absolute Neuts (auto) 4.6 Neutrophils % 64.7 Lymphocytes % 20.7 Monocytes % 9.5 Eosinophils % 4.3 Basophils % 0.8 Nucleated RBC % 0 PT with INR 12.70 INR 1.08 Sodium 142 Potassium 3.0 L Chloride 105 Carbon Dioxide 27 Anion Gap 10 BUN 36 H Creatinine 1.9 H Creat Clearance w eGFR 26.06 POC Glucometer Random Glucose 31 L* Calcium 8.6 Total Bilirubin 0.4 AST 35 ALT 23 Alkaline Phosphatase 67 Creatine Kinase 267 H Creatine Kinase Index 1.5 CK-MB (CK-2) 4.2 H Troponin I 0.15 H Total Protein 7.9 Albumin 3.6 Triglycerides 74 Cholesterol 174 Total LDL Cholesterol 60 HDL Cholesterol 97 H Urine Color Urine Appearance Urine pH Ur Specific Grimsley Urine Protein Urine Glucose (UA) Urine Ketones Urine Blood Urine Nitrite Urine Bilirubin Urine Urobilinogen Ur Leukocyte Esterase Blood Type Antibody Screen 08/06/18 08/06/18 08/06/18 13:09 13:16 14:10 WBC RBC Hgb Hct MCV MCH MCHC RDW Plt Count MPV Absolute Neuts (auto) Neutrophils % Lymphocytes % Monocytes % Eosinophils % Basophils % Nucleated RBC % PT with INR INR Sodium Potassium Chloride Carbon Dioxide Anion Gap BUN Creatinine Creat Clearance w eGFR POC Glucometer < 50 Random Glucose Calcium Total Bilirubin AST ALT Alkaline Phosphatase Creatine Kinase Creatine Kinase Index CK-MB (CK-2) Troponin I Total Protein Albumin Triglycerides Cholesterol Total LDL Cholesterol HDL Cholesterol Urine Color Straw Urine Appearance Clear Urine pH 6.0 Ur Specific Grimsley 1.011 Urine Protein Negative Urine Glucose (UA) 2+ H Urine Ketones Negative Urine Blood Negative Urine Nitrite Negative Urine Bilirubin Negative Urine Urobilinogen Negative Ur Leukocyte Esterase Negative Blood Type AB POSITIVE Antibody Screen Negative 08/06/18 14:34 WBC RBC Hgb Hct MCV MCH MCHC RDW Plt Count MPV Absolute Neuts (auto) Neutrophils % Lymphocytes % Monocytes % Eosinophils % Basophils % Nucleated RBC % PT with INR INR Sodium Potassium Chloride Carbon Dioxide Anion Gap BUN Creatinine Creat Clearance w eGFR POC Glucometer [phone] Random Glucose Calcium Total Bilirubin AST ALT Alkaline Phosphatase Creatine Kinase Creatine Kinase Index CK-MB (CK-2) Troponin I Total Protein Albumin Triglycerides Cholesterol Total LDL Cholesterol HDL Cholesterol Urine Color Urine Appearance Urine pH Ur Specific Grimsley Urine Protein Urine Glucose (UA) Urine Ketones Urine Blood Urine Nitrite Urine Bilirubin Urine Urobilinogen Ur Leukocyte Esterase Blood Type Antibody Screen ASSESSMENT/PLAN: 73 yo F with a PMHx of HTN, DM, HLD, who presented to the ED because of confusion and altered mental status and was found to have hypertensive emergency. #AMS -likely from HTN emergency vs TIA vs Hypoglycemia -ICU monitoring -Head CT neg -FU brain MRI -NIH score 2 -ASA 325mg -Statin -speech/swallow -bcx, ucx -echo -tight glucose control -neuro checks q2 #Hypertensive Emergency -Head CT neg -Hydralazine 10mg IV 1x in ED -Nitro drip -EKG with T wave inversions in lateral leads, with no priors to compare -Repeat EKG now and in AM -Carotid dopplers -cardiac monitoring -ICU monitoring #Hypoglycemia -D50 given -now resolved -ISS -BGM #Elevated troponin -likely demand -EKG with T wave inversions in lateral leads, with no priors to compare -Repeat EKG now and in AM -trend trops -ECHO in AM #JESSE -likely prerenal -avoid nephrotoxins -IV fluids -hold lisinopril #FEN -Normal saline @42 -monitor -sodium restricted #DVT ppx -lovenox 40mg Dispo: ICU monitoring
[2018-08-06] MEDS: INSULIN SLIDING SCALE (NOVOLOG) 1 VIAL SQ SCH ×2 (16:46→22:23)
[2018-08-06] MEDS ORDERED: POTASSIUM CHLORIDE TABS 10 MEQ TABLET.ER (FP) PO ONE (18:18)
[2018-08-06] MEDS ORDERED: POTASSIUM CHLORIDE TABS 20 MEQ TABLET.ER (FP) PO ONE (18:20)
[2018-08-06] MEDS ORDERED: POTASSIUM CHLORIDE TABS 20 MEQ TABLET.ER (FP) PO SCH (18:30)
[2018-08-06] MEDS: ATORVASTATIN CA 10 MG TABLET (FP) PO SCH (22:13)
[2018-08-06] MEDS: CHLORHEXIDINE GLUCONATE 4% CLEANSER FOR DECOLONIZATION TP SCH (22:13)
[2018-08-06] MEDS: MUPIROCIN 2% TOPICAL OINTMENT FOR DECOLONIZATION NS SCH (22:13)
[2018-08-07 06:18] LABS: BASO % 0.7 % (0-2.0); EOS % 5.1 % (0-4.5); HEMATOCRIT 37.2 % (32.4-45.2); HEMOGLOBIN 12.2 GM/dL (10.7-15.3); LYMPH % 19.1 % (8-40); MCH 28.1 pg (25.7-33.7); MCHC 32.7 g/dl (32.0-36.0); MEAN CELL VOLUME 85.8 fl (80-96); MEAN PLT VOLUME 10.2 fl (7.5-11.1); MONO % 8.6 % (3.8-10.2); NEUT % 66.5 % (42.8-82.8); PLATELET COUNT 164 K/MM3 (134-434); RBC 4.33 M/mm3 (3.60-5.2); RDW 13.2 % (11.6-15.6); WHITE BLOOD COUNT 7.4 K/mm3 (4.0-10.0)
[2018-08-07 06:26] LABS: INR 1.12 (0.83-1.09); PROTHROMBIN TIME (PATIENT) 13.2 SEC (9.7-13.0)
[2018-08-07 07:01] LABS: ALBUMIN 3.3 g/dl (3.4-5.0); ALK PHOS 60 U/L (45-117); ANION GAP 8 MMOL/L (8-16); BILIRUBIN,TOTAL 0.5 mg/dL (0.2-1); BLOOD UREA NITROGEN 38 mg/dL (7-18); CALCIUM 8.3 mg/dL (8.5-10.1); CHLORIDE 109 mmol/L (98-107); CO2 26 mmol/L (21-32); CREATININE 1.8 mg/dL (0.55-1.3); GLUCOSE,RANDOM 66 mg/dL (74-106); PHOSPHOROUS 3.7 mg/dL (2.5-4.9); POTASSIUM 3.3 mmol/L (3.5-5.1); SGOT/AST 25 U/L (15-37); SGPT/ALT 20 U/L (13-61); SODIUM 142 mmol/L (136-145); TOT PROT 6.9 g/dl (6.4-8.2)
[2018-08-07] MEDS: INSULIN SLIDING SCALE (NOVOLOG) 1 VIAL SQ SCH ×4 (07:02→21:33)
--- NOTE | 2018-08-07 07:50 | PN ---
Physical Exam: SUBJECTIVE: Patient seen and examined. Patient denies symptoms/complaints this morning. Denies JUAREZ, vision changes, chest pain, SOB, dizziness. OBJECTIVE: Vital Signs Period Temp Pulse Resp BP Sys/Luevano Pulse Ox Last 24 Hr 97.5 F-98.7 F 49-90 16-20 151-260/66-124 98-100 GENERAL: Awake, alert, and fully oriented, in no acute distress HEAD: No signs of trauma, normocephalic, atraumatic EYES: PERRLA, EOMI, sclera anicteric, conjunctiva clear ENT: Hearing grossly normal, nares patent, oropharynx clear without exudates. Moist mucosa LUNGS: No distress, speaks full sentences, clear to auscultation bilaterally HEART: Regular rate and rhythm, normal S1 and S2, holosystolic murmur (III/), peripheral pulses normal and equal bilaterally ABDOMEN: Soft, nontender, normoactive bowel sounds. No guarding, no rebound EXTREMITIES : Normal inspection, Normal range of motion, no edema. No clubbing or cyanosis NEUROLOGICAL: Cranial nerves II through XII grossly intact. Normal speech, no focal sensorimotor deficits SKIN: Warm, Dry Active Medications Generic Name Dose Route Start Last Admin Trade Name Freq PRN Reason Stop Dose Admin Aspirin 325 mg 08/07/18 10:00 Asa - PO DAILY CHAIM Atorvastatin Calcium 10 mg 08/06/18 22:00 08/06/18 22:13 Lipitor - PO 10 mg HS CHAIM Administration Chlorhexidine Gluconate 1 applic 08/06/18 22:00 08/06/18 22:13 Hibiclens For Decolonization - TP 1 applic HS CHAIM Administration Nitroglycerin/Dextrose 25 mg in 250 mls @ 6 mls/hr 08/06/18 14:15 08/06/18 14 :27 Nitroglycerin 25mg/D5w 250ml IVPB 10 mcg/min TITR CHAIM 6 mls/hr Administration 10 MCG/MIN Insulin Aspart 1 vial 08/06/18 16:30 08/07/18 07:02 Novolog Vial Sliding Scale - SQ Not Given ACHS [facility] Protocol Mupirocin 1 applic 08/06/18 22:00 08/06/18 22:13 Bactroban Ointment (For Decolonization) - NS 08/11/18 21:59 1 applic BID CHAIM Administration ASSESSMENT/PLAN: The patient is a 73F w/ a history HTN, HLD, and MVP who presents for evaluation of hypertensive emergency, BP 248/97 on arrival w/ associated troponinemia. The patient was initially given hydralazine with little effect and was subsequently started on a nitro gtt with interval improvement to SBP 190s. Ddx: stroke v TIA, hypoglycemia, HTN emergency; possible lyte abn, however lytes at baseline in ED Neuro AMS -A&Ox3 -CT Head w/o evidence of bleed -Pt pending MRI for further evaluation Denies pain currently CV Hypertensive Emergency -Wean Nitro gtt -At goal SBP -Will start Labetalol 100mg PO TID Troponinemia (0.15) -Likely demand ischemia --Repeat Trop I 0.19, will continue to trend -Denies chest pain, SOB, dizziness, or vision changes -ECHO pending HLD -Continue home simvastatin PULM Breathing comfortably on room air, will CTM JESSE -Cr 1.8 (1.9), baseline unknown -Will hold home lisinopril and HCTZ HEME No anemia, will CTM DVT Ppx -Mechanical Ppx -Chemical ppx held until BP normalized ID Afebrile, no leukocytosis ENDO T2DM -Will hold home glipizide -ISS -BGM Hypoglycemia -BG 66 this AM -Home glipizide held -ISS/BGM LTD PIV Dispo: If able to wean nitro gtt, will transfer to floor Visit type - Emergency Visit Emergency Visit: Yes ED Registration Date: 08/06/18 Care time: The patient presented to the Emergency Department on the above date and was hospitalized for further evaluation of their emergent condition. - New Patient This patient is new to me today: No - Critical Care Critical Care patient: Yes Total Critical Care Time (in minutes): 30 Critical Care Statement: The care of this patient involved high complexity decision making to prevent further life threatening deterioration of the patient 's condition and/or to evaluate & treat vital organ system(s) failure or risk of failure.
[2018-08-07] MEDS: POTASSIUM CHLORIDE TABS 20 MEQ TABLET.ER (FP) PO SCH ×2 (08:59→12:07)
[2018-08-07] MEDS: MUPIROCIN 2% TOPICAL OINTMENT FOR DECOLONIZATION NS SCH ×2 (09:03→21:37)
[2018-08-07] MEDS: ASPIRIN 325 MG TABLET PO SCH (09:03)
[2018-08-07 10:24] LABS: ERYTHROCYTE SEDIMENTATION RATE 14 mm/hr (0-30)
--- NOTE | 2018-08-07 12:10 | PN ---
Teaching Attending Note Name of Resident: Castro Zaragoza ATTENDING PHYSICIAN STATEMENT I saw and evaluated the patient. I reviewed the resident's note and discussed the case with the resident. I agree with the resident's findings and plan as documented. SUBJECTIVE: Pt seen and examined in the ICU. Remains on nitro gtt. Denies shortness of breath or chest pain. No headache, nausea. OBJECTIVE: Vital Signs Period Temp Pulse Resp BP Sys/Luevano Pulse Ox Last 24 Hr 97.5 F-98.7 F 49-90 16-20 151-260/66-124 98-100 Intake & Output 08/04/18 08/05/18 08/06/18 08/07/18 23:59 23:59 23:59 23:59 Intake Total 100 72 Balance 100 72 Weight 67.755 kg 67.245 kg Gen: NAD at rest Heart: RRR Lung: decreased breath sounds at the bases Abd: soft, nontender Ext: no edema CBC, BMP 08/07/18 05:30 08/07/18 05:30 Active Medications Aspirin (Asa -) 325 mg PO DAILY [facility] Last Admin: 08/07/18 09:03 Dose: 325 mg Atorvastatin Calcium (Lipitor -) 10 mg PO HS [facility] Last Admin: 08/06/18 22:13 Dose: 10 mg Chlorhexidine Gluconate (Hibiclens For Decolonization -) 1 applic TP HS [facility] Last Admin: 08/06/18 22:13 Dose: 1 applic Nitroglycerin/Dextrose (Nitroglycerin 25mg/D5w 250ml) 25 mg in 250 mls @ 6 mls/ hr IVPB TITR [facility] Last Admin: 08/06/18 14:27 Dose: 10 mcg/min, 6 mls/hr Insulin Aspart (Novolog Vial Sliding Scale -) 1 vial SQ ACHS [facility]; Protocol Last Admin: 08/07/18 12:06 Dose: 2 units Labetalol HCl (Normodyne -) 100 mg PO TID [facility] Mupirocin (Bactroban Ointment (For Decolonization) -) 1 applic NS BID [facility] Stop: 08/11/18 21:59 Last Admin: 08/07/18 09:03 Dose: 1 applic ASSESSMENT AND PLAN: Hypertensive Urgency Altered Mental Status Hypoglycemia +Troponins likely Demand Ischemia Acute Kidney Injury DM Hyperlipidemia - start labetalol - titrate off nitro gtt - monitor BGM - echocardiogram - PO as tolerated - DVT prophylaxis - can monitor on floor when off nitro gtt
--- NOTE | 2018-08-07 12:12 | ECHO ---
Version: 1 Name: DAVID VELA Exam: Adult Echocardiogram Study Date: 08/07/2018, 9:13 AM Age: 73 Years MMode/2D Measurements & Calculations IVSd: 1.35 cm LVIDs: 2.5 cm LVIDd: 4.1 cm LVPWd: 1.06 cm LVOT diam: 1.78 cm Ao root diam: 2.8 cm LA dimension: 3.2 cm Doppler Measurements & Calculations MV E max segun: 75.5 cm/sec Med E/e': 22.3 MV A max segun: 114.0 cm/sec Med Peak E' Segun: 3.4 cm/sec MV E/A: 0.66 Lat E/e': 13.9 Lat Peak E' Segun: 5.5 cm/sec Ao max P.8 mmHg Ao V2 max: 222.6 cm/sec TR max segun: 289.8 cm/sec TR max P.6 mmHg Procedure A two-dimensional transthoracic echocardiogram with color flow and Doppler was performed. Left Ventricle There is moderate concentric left ventricular hypertrophy. An intracavitary gradient is present. Pro voked LV peak intracavitary gradient of 45 mmHg. The left ventricular ejection fraction is normal. E/A revers al consistent with but not diagnostic of poor LV compliance. The left ventricular wall motion is normal . Right Ventricle The right ventricle is normal in size and function. Atria Normal left and right atrial size and function. Mitral Valve There is mild mitral valve thickening. There is no mitral valve stenosis. There is trace to mild bob ral regurgitation. Tricuspid Valve There is mild tricuspid valve thickening. There is no tricuspid stenosis. There is mild tricuspid regurgitation. Right ventricular systolic pressure is elevated at 40-50mmHg. Aortic Valve The aortic valve is not well visualized. There is mild aortic valve thickening. No hemodynamically significant valvular aortic stenosis. No aortic regurgitation is present. Pulmonic Valve The pulmonic valve is not well visualized. Great Vessels The aortic root is normal size. Pericardium/Pleura There is no pericardial effusion. Summary Statements There is moderate concentric left ventricular hypertrophy. The left ventricular ejection fraction is normal. There is mild tricuspid regurgitation. Right ventricular systolic pressure is elevated at 40-50mmHg. The aortic valve is not well visualized. There is mild aortic valve thickening. E/A reversal consistent with but not diagnostic of poor LV compliance The left ventricular wall motion is normal. There is trace to mild mitral regurgitation. An intracavitary gradient is present. Provoked LV peak intracavitary gradient of 45 mmHg No hemodynamically significant valvular aortic stenosis. MD Joe Easley 08/07/2018, 12:12 PM Ordering Physician: Gurpreet Alejo Performed By: Fina Banda
[2018-08-07] MEDS ORDERED: LABETALOL HCL 100 MG TABLET (FP) PO SCH (14:00)
[2018-08-07] MEDS: NITROGLYCERIN 25MG/D5W 250ML 25 MG/250 ML ML IVPB SCH ×2 (15:00→19:04)
--- NOTE | 2018-08-07 15:03 | PN ---
Physical Exam: SUBJECTIVE: Patient seen and examined at bedside this morning. Patient admitted overnight due to altered mental status. At the ED, blood pressure was noted to be elevated with SBP >260 and glucose of 31. Patient received D50 and was put on Nitroglycerin drip. Patient reported yesterday she remembered having exchange gifts with family, and as her daughter told her, she was given a gift and just stared ahead. She is unaware how long it lasted ,but the next thing she remembered was her daughter and son, was taking her to the car and brought her to the hospital. Patient reported this was the first time it ever happened. She regularly follows up with her primary care doctor, and was always noted to have elevated blood pressure with SBPs at 170, but her blood sugar was never discussed with her, and was told was okay ever since she was diagnosed of DM. OBJECTIVE: Vital Signs Period Temp Pulse Resp BP Sys/Luevano Pulse Ox Last 24 Hr 98 F-98.7 F 64-90 16-20 151-196/66-94 98-100 GENERAL: The patient is awake, alert, and fully oriented, in no acute distress. HEAD: Normal with no signs of trauma. EYES: PERRLA, EOMI, sclera anicteric, conjunctiva clear. ENT: Ears normal, nares patent, oropharynx clear without exudates, moist mucous membranes. NECK: Trachea midline, full range of motion, supple. LUNGS: Breath sounds equal, clear to auscultation bilaterally. HEART: Regular rate and rhythm, +holosystolic murmur. ABDOMEN: Soft, nontender, nondistended, normoactive bowel sounds. EXTREMITIES: 2+ pulses, warm, well-perfused, no edema. NEUROLOGICAL: Cranial nerves II through XII grossly intact. Normal speech, gait not observed. PSYCH: Normal mood, normal affect. SKIN: Warm, dry, normal turgor, no rashes or lesions noted Laboratory Results - last 24 hr 08/06/18 08/06/18 08/06/18 15:36 16:45 18:01 WBC RBC Hgb Hct MCV MCH MCHC RDW Plt Count MPV Absolute Neuts (auto) Neutrophils % Lymphocytes % Monocytes % Eosinophils % Basophils % Nucleated RBC % ESR PT with INR INR Sodium Potassium Chloride Carbon Dioxide Anion Gap BUN Creatinine Creat Clearance w eGFR POC Glucometer 99.39666 Random Glucose Hemoglobin A1c % Calcium Phosphorus Magnesium Total Bilirubin AST ALT Alkaline Phosphatase Creatine Kinase Creatine Kinase Index CK-MB (CK-2) Troponin I Total Protein Albumin Vitamin B12 890 TSH RPR Titer Blood Type AB POSITIVE 08/06/18 08/06/18 08/06/18 18:01 20:30 22:20 WBC RBC Hgb Hct MCV MCH MCHC RDW Plt Count MPV Absolute Neuts (auto) Neutrophils % Lymphocytes % Monocytes % Eosinophils % Basophils % Nucleated RBC % ESR PT with INR INR Sodium Potassium Chloride Carbon Dioxide Anion Gap BUN Creatinine Creat Clearance w eGFR POC Glucometer 185.06934 Random Glucose Hemoglobin A1c % Calcium Phosphorus Magnesium Total Bilirubin AST ALT Alkaline Phosphatase Creatine Kinase 246 H Creatine Kinase Index 1.4 CK-MB (CK-2) 3.5 Troponin I 0.13 H 0.15 H Total Protein Albumin Vitamin B12 TSH RPR Titer Blood Type 08/07/18 08/07/18 08/07/18 05:30 05:30 05:30 WBC 7.4 RBC 4.33 Hgb 12.2 Hct 37.2 MCV 85.8 MCH 28.1 MCHC 32.7 RDW 13.2 Plt Count 164 MPV 10.2 Absolute Neuts (auto) 4.9 Neutrophils % 66.5 Lymphocytes % 19.1 Monocytes % 8.6 Eosinophils % 5.1 H Basophils % 0.7 Nucleated RBC % 0 ESR 14 PT with INR 13.20 H INR 1.12 H Sodium Potassium Chloride Carbon Dioxide Anion Gap BUN Creatinine Creat Clearance w eGFR POC Glucometer Random Glucose Hemoglobin A1c % 6.5 H Calcium Phosphorus Magnesium Total Bilirubin AST ALT Alkaline Phosphatase Creatine Kinase Creatine Kinase Index CK-MB (CK-2) Troponin I Total Protein Albumin Vitamin B12 TSH RPR Titer Blood Type 08/07/18 08/07/18 08/07/18 05:30 05:30 05:51 WBC RBC Hgb Hct MCV MCH MCHC RDW Plt Count MPV Absolute Neuts (auto) Neutrophils % Lymphocytes % Monocytes % Eosinophils % Basophils % Nucleated RBC % ESR PT with INR INR Sodium 142 Potassium 3.3 L Chloride 109 H Carbon Dioxide 26 Anion Gap 8 BUN 38 H Creatinine 1.8 H Creat Clearance w eGFR 27.74 POC Glucometer 75.76268 Random Glucose 66 L Hemoglobin A1c % Calcium 8.3 L Phosphorus 3.7 Magnesium 2.0 Total Bilirubin 0.5 AST 25 ALT 20 Alkaline Phosphatase 60 Creatine Kinase Creatine Kinase Index CK-MB (CK-2) Troponin I 0.19 H Total Protein 6.9 Albumin 3.3 L Vitamin B12 TSH 6.22 H RPR Titer Nonreactive Blood Type 08/07/18 08/07/18 11:57 12:28 WBC RBC Hgb Hct MCV MCH MCHC RDW Plt Count MPV Absolute Neuts (auto) Neutrophils % Lymphocytes % Monocytes % Eosinophils % Basophils % Nucleated RBC % ESR PT with INR INR Sodium Potassium Chloride Carbon Dioxide Anion Gap BUN Creatinine Creat Clearance w eGFR POC Glucometer 180.87375 Random Glucose Hemoglobin A1c % Calcium Phosphorus Magnesium Total Bilirubin AST ALT Alkaline Phosphatase Creatine Kinase Creatine Kinase Index CK-MB (CK-2) Troponin I 0.26 H Total Protein Albumin Vitamin B12 TSH RPR Titer Blood Type Active Medications Generic Name Dose Route Start Last Admin Trade Name Freq PRN Reason Stop Dose Admin Aspirin 325 mg 08/07/18 10:00 08/07/18 09:03 Asa - PO 325 mg DAILY [facility] Administration Atorvastatin Calcium 10 mg 08/06/18 22:00 08/06/18 22:13 Lipitor - PO 10 mg HS [facility] Administration Chlorhexidine Gluconate 1 applic 08/06/18 22:00 08/06/18 22:13 Hibiclens For Decolonization - TP 1 applic HS [facility] Administration Nitroglycerin/Dextrose 25 mg in 250 mls @ 6 mls/hr 08/06/18 14:15 08/06/18 14 :27 Nitroglycerin 25mg/D5w 250ml IVPB 10 mcg/min TITR [facility] 6 mls/hr Administration 10 MCG/MIN Insulin Aspart 1 vial 08/06/18 16:30 08/07/18 12:06 Novolog Vial Sliding Scale - SQ 2 units ACHS [facility] Administration Protocol Labetalol HCl 100 mg 08/07/18 14:00 08/07/18 13:57 Normodyne - PO 100 mg TID [facility] Administration Mupirocin 1 applic 08/06/18 22:00 08/07/18 09:03 Bactroban Ointment (For Decolonization) - NS 08/11/18 21:59 1 applic BID [facility] Administration ASSESSMENT/PLAN: Patient is a 73 year old female with past medical history of HTN, DM, and HLD, presented with confusion and altered mental status and was noted to have hypoglycemia and elevated blood pressure. #Altered mental status: likely 2/2 Hypertensive urgency vs Hypoglycemia vs TIA -patient is now AAOx3 and has not had any episodes of AMS since admission -Heat CT: no acute intracranial pathologyd -Carotid doppler - Mild atherosclerotic disease with no evidence of hemodynamically significant stenoses -Echo -Speech and swallow evaluation -Tight glucose control -Tight blood pressure control -Neurology (Dr. Gama) consulted. Recommendations appreciated. -Admit to monitored setting -MRI of brain without contrast -DVT prophylaxis -Continue full aspirin and statin -Stroke education #Hypertensive Emergency -still on Nitro drip. will wean off -Labetalol 100mg PO TID started -Will transfer to floors as per ICU team -Cardiology (Dr. Webb) consulted. #Troponinemia -likely 2/2 demand ischemia -0.15 --> 0.26 -will continue to trend -Echo done #Hypoglycemia: resolved -patient has hx of DM -Hold home medications for now -Glu 31 at the ED. D50 given -Glu stable today at 180 -Insulin sliding scale implemented -BGM ACHS #Hyperlipidemia -Continue Lipitor 10mg PO HS #JESSE -BUN/Cr 38/1.8 -Hold home medications lisinopril and HCTZ -Avoid nephrotoxic agents such as NSAIDs, aminoglycosides and contrast. #FEN -Not on any standing fluids -Encourage increased oral fluid intake -Electrolytes wnl, routine bmp monitoring -Sodium controlled diet. #Prophylaxis -Lovenox 40mg sq daily -ASA 325mg daily #Disposition -full code -ICU for closer monitoring -Will transfer to floor as per ICU team once weaned off Nitro drip Visit type - Emergency Visit Emergency Visit: Yes ED Registration Date: 08/06/18 Care time: The patient presented to the Emergency Department on the above date and was hospitalized for further evaluation of their emergent condition. - New Patient This patient is new to me today: Yes Date on this admission: 08/07/18 - Critical Care Critical Care patient: Yes Total Critical Care Time (in minutes): 40 Critical Care Statement: The care of this patient involved high complexity decision making to prevent further life threatening deterioration of the patient 's condition and/or to evaluate & treat vital organ system(s) failure or risk of failure.
[2018-08-07] MEDS ORDERED: LABETALOL HCL 5 MG/1 ML (100MG/20 ML VIAL) IVPUSH ONE ×2 (15:59→16:20)
[2018-08-07] MEDS ORDERED: LABETALOL HCL 5 MG/1 ML (100MG/20 ML VIAL) ONE (16:01)
[2018-08-07] MEDS ORDERED: hydrALAZINE HCL 20 MG/ML VIAL IVPUSH ONE (16:18)
--- NOTE | 2018-08-07 16:52 | EKG ---
Test Reason : Blood Pressure : / mmHG Vent. Rate : 078 BPM Atrial Rate : 078 BPM P-R Int : 134 ms QRS Dur : 082 ms QT Int : 404 ms P-R-T Axes : 036 -34 113 degrees QTc Int : 460 ms SINUS RHYTHM WITH PREMATURE ATRIAL COMPLEXES LEFT AXIS DEVIATION LEFT VENTRICULAR HYPERTROPHY WITH REPOLARIZATION ABNORMALITY CANNOT RULE OUT SEPTAL INFARCT (CITED ON OR BEFORE 06-AUG-2018) ABNORMAL ECG WHEN COMPARED WITH ECG OF 06-AUG-2018 13:30, SERIAL CHANGES OF SEPTAL INFARCT PRESENT Confirmed by YUMIKO REID MD ([id number]) on 08/07/2018 4:52:24 PM Referred By: Confirmed By:YUMIKO REID MD
--- NOTE | 2018-08-07 16:54 | EKG ---
Test Reason : Blood Pressure : / mmHG Vent. Rate : 064 BPM Atrial Rate : 064 BPM P-R Int : 152 ms QRS Dur : 084 ms QT Int : 440 ms P-R-T Axes : 050 -33 128 degrees QTc Int : 453 ms SINUS RHYTHM WITH PREMATURE ATRIAL COMPLEXES LEFT AXIS DEVIATION LEFT VENTRICULAR HYPERTROPHY WITH REPOLARIZATION ABNORMALITY CANNOT RULE OUT SEPTAL INFARCT , AGE UNDETERMINED ABNORMAL ECG NO PREVIOUS ECGS AVAILABLE Confirmed by YUMIKO REID MD ([id number]) on 08/07/2018 4:54:06 PM Referred By: Confirmed By:YUMIKO REID MD
--- NOTE | 2018-08-07 18:19 | PN ---
Progress Note, Physician History of Present Illness: EVENTS NOTED cHART REVIEWED aLERT aWAKE oREINTED fOLLWOS COMMANDS nO EVENTS sPEECH IS NORMAL - Current Medication List Current Medications: Active Medications Aspirin (Asa -) 325 mg PO DAILY [facility] Last Admin: 08/07/18 09:03 Dose: 325 mg Atorvastatin Calcium (Lipitor -) 10 mg PO HS [facility] Last Admin: 08/06/18 22:13 Dose: 10 mg Chlorhexidine Gluconate (Hibiclens For Decolonization -) 1 applic TP HS [facility] Last Admin: 08/06/18 22:13 Dose: 1 applic Nitroglycerin/Dextrose (Nitroglycerin 25mg/D5w 250ml) 25 mg in 250 mls @ 6 mls/ hr IVPB TITR [facility] Insulin Aspart (Novolog Vial Sliding Scale -) 1 vial SQ ACHS [facility]; Protocol Last Admin: 08/07/18 16:56 Dose: 6 units Labetalol HCl (Normodyne -) 100 mg PO TID [facility] Last Admin: 08/07/18 13:57 Dose: 100 mg Mupirocin (Bactroban Ointment (For Decolonization) -) 1 applic NS BID [facility] Stop: 08/11/18 21:59 Last Admin: 08/07/18 09:03 Dose: 1 applic - Objective Vital Signs: Vital Signs Temperature 98.1 F 08/07/18 06:00 Pulse Rate 77 08/07/18 10:00 Respiratory Rate 19 08/07/18 10:00 Blood Pressure 188/66 H 08/07/18 10:00 O2 Sat by Pulse Oximetry (%) 100 08/07/18 09:00 Constitutional: Yes: Well Nourished Eyes: Yes: WNL (icu) Neurological: Yes: Alert, Oriented, Babinski negative ...Motor Strength: WNL Labs: CBC, BMP 08/07/18 05:30 08/07/18 05:30 INR, PTT INR 1.12 (0.83-1.09) H 08/07/18 05:30 Problem List - Problems (1) TIA (transient ischemic attack) Assessment/Plan: 1. Tight blood pressure control. 2. Follow-up with cardiology. 3. Cancel the MRI of the brain. 4. Out of bed to chair. 5. Decrease salt intake. 6. Case was discussed with the daughter who is a nurse Code(s): G45.9 - TRANSIENT CEREBRAL ISCHEMIC ATTACK, UNSPECIFIED (2) Hypertensive emergency Code(s): I16.1 - HYPERTENSIVE EMERGENCY
--- NOTE | 2018-08-07 18:40 | PN ---
Teaching Attending Note Name of Resident: Dolores Mcwilliams ATTENDING PHYSICIAN STATEMENT I saw and evaluated the patient. I reviewed the resident's note and discussed the case with the resident. I agree with the resident's findings and plan as documented. SUBJECTIVE: Patient is feeling better with no acute distress, blood pressure is still running high. OBJECTIVE: Vital Signs Temperature 98.1 F 08/07/18 06:00 Pulse Rate 77 08/07/18 10:00 Respiratory Rate 19 08/07/18 10:00 Blood Pressure 188/66 H 08/07/18 10:00 O2 Sat by Pulse Oximetry (%) 100 08/07/18 09:00 GENERAL: Awake, alert, and fully oriented, in no acute distress. EYES: Pupils equal, round and reactive to light, extraocular movements intact, injected pupils EARS, NOSE, THROAT: oropharynx clear without exudates. Moist mucous membranes. NECK: supple without lymphadenopathy, JVD, or masses. LUNGS: Breath sounds equal, clear to auscultation bilaterally HEART: Regular rate and rhythm, normal S1 and S2 without murmur, rub or gallop. ABDOMEN: Soft, nontender, not distended, normoactive bowel sounds MUSCULOSKELETAL: Normal range of motion at all joints. No bony deformities or tenderness. No CVA tenderness. EXTREMITIES: 2+ pulses, warm, well-perfused. No cyanosis. No peripheral edema. NEUROLOGICAL: Cranial nerves II-XII intact. Normal speech. no facial droop. symmetrical face. PSYCHIATRIC: Cooperative. Good eye contact. Appropriate mood and affect. CBCD WBC 7.4 K/mm3 (4.0-10.0) 08/07/18 05:30 RBC 4.33 M/mm3 (3.60-5.2) 08/07/18 05:30 Hgb 12.2 GM/dL (10.7-15.3) 08/07/18 05:30 Hct 37.2 % (32.4-45.2) 08/07/18 05:30 MCV 85.8 fl (80-96) 08/07/18 05:30 MCHC 32.7 g/dl (32.0-36.0) 08/07/18 05:30 RDW 13.2 % (11.6-15.6) 08/07/18 05:30 Plt Count 164 K/MM3 (134-434) 08/07/18 05:30 MPV 10.2 fl (7.5-11.1) 08/07/18 05:30 CMP Sodium 142 mmol/L (136-145) 08/07/18 05:30 Potassium 3.3 mmol/L (3.5-5.1) L 08/07/18 05:30 Chloride 109 mmol/L (98-107) H 08/07/18 05:30 Carbon Dioxide 26 mmol/L (21-32) 08/07/18 05:30 Anion Gap 8 MMOL/L (8-16) 08/07/18 05:30 BUN 38 mg/dL (7-18) H 08/07/18 05:30 Creatinine 1.8 mg/dL (0.55-1.3) H 08/07/18 05:30 Creat Clearance w eGFR 27.74 (>60) 08/07/18 05:30 Random Glucose 66 mg/dL (74-106) L 08/07/18 05:30 Calcium 8.3 mg/dL (8.5-10.1) L 08/07/18 05:30 Total Bilirubin 0.5 mg/dL (0.2-1) 08/07/18 05:30 AST 25 U/L (15-37) 08/07/18 05:30 ALT 20 U/L (13-61) 08/07/18 05:30 Alkaline Phosphatase 60 U/L (45-117) 08/07/18 05:30 Total Protein 6.9 g/dl (6.4-8.2) 08/07/18 05:30 Albumin 3.3 g/dl (3.4-5.0) L 08/07/18 05:30 CARDIAC ENZYMES Creatine Kinase 246 IU/L (26-192) H 08/06/18 20:30 Troponin I 0.26 ng/ml (0.00-0.05) H 08/07/18 12:28 Current Medications Generic Name Dose Route Start Last Admin Trade Name Freq PRN Reason Stop Dose Admin Aspirin 325 mg 08/07/18 10:00 08/07/18 09:03 Asa - PO 325 mg DAILY [facility] Administration Atorvastatin Calcium 10 mg 08/06/18 22:00 08/06/18 22:13 Lipitor - PO 10 mg HS [facility] Administration Chlorhexidine Gluconate 1 applic 08/06/18 22:00 08/06/18 22:13 Hibiclens For Decolonization - TP 1 applic HS [facility] Administration Nitroglycerin/Dextrose 25 mg in 250 mls @ 6 mls/hr 08/07/18 18:15 Nitroglycerin 25mg/D5w 250ml IVPB TITR [facility] Protocol 10 MCG/MIN Insulin Aspart 1 vial 08/06/18 16:30 08/07/18 16:56 Novolog Vial Sliding Scale - SQ 6 units ACHS [facility] Administration Protocol Labetalol HCl 100 mg 08/07/18 14:00 08/07/18 13:57 Normodyne - PO 100 mg TID [facility] Administration Mupirocin 1 applic 08/06/18 22:00 08/07/18 09:03 Bactroban Ointment (For Decolonization) - NS 08/11/18 21:59 1 applic BID [facility] Administration Home Medications Medication Instructions Recorded Aspirin [ASA -] 325 mg PO DAILY 08/06/18 Glipizide 5 mg PO BID 08/06/18 Hydrochlorothiazide 25 mg PO DAILY 08/06/18 Lisinopril 20 mg PO BID 08/06/18 Simvastatin 10 mg PO HS 08/06/18 ASSESSMENT AND PLAN: Patient is a 73yo Female with a PMHx of HTN, DM, HLD, who presented to the ED because of acute change of mental status confusion and altered mental status and was found to have hypertensive emergency and low blood sugar. #Hypertensive Emergency:in ICU, on Nitro drip, Cardio consulted, increasing the dose of Labetol to 200mg tid. #Acute change mental status due to having hypoglycemia and hypertensive emergency. Improved. patient is on Glyberide at home, might need to reduce the dose since can cause hypoglycemia and add metformin to her regimen. will admit her in ICU , start her nitro drip since was found to have an ischemic changes on the EKG . aspirin, neuro check, cardio consult . #Hypoglycemia: D50 given, careful upon discharge , reduce the dose of glyberide to 2.5mg and add metformin since shari't cause hypoglycemia. monitor kidney function. ss scale with coverage #Elevated troponin: likely demand, EKG with T wave inversions in lateral leads, with no priors to compare ECHO result: moderate concentric LVH with normal EJF, nl EJ fraction. mild aortic thickening, trce mild MR. #JESSE: Cr.1.9-->1.8 , nephro in the case . IV fluids, hold lisinopril VT ppx: heparin sq Dispo: ICU monitoring
[2018-08-07] MEDS: ATORVASTATIN CA 10 MG TABLET (FP) PO SCH (21:36)
[2018-08-07] MEDS: CHLORHEXIDINE GLUCONATE 4% CLEANSER FOR DECOLONIZATION TP SCH (21:37)
[2018-08-07] MEDS: LABETALOL HCL 100 MG TABLET (FP) PO SCH (21:37)
[2018-08-08] MEDS: NITROGLYCERIN 25MG/D5W 250ML 25 MG/250 ML ML IVPB SCH (02:38)
[2018-08-08] MEDS: LABETALOL HCL 100 MG TABLET (FP) PO SCH ×3 (05:24→21:09)
[2018-08-08 06:08] LABS: BASO % 0.9 % (0-2.0); EOS % 4.5 % (0-4.5); HEMATOCRIT 35.1 % (32.4-45.2); HEMOGLOBIN 11.3 GM/dL (10.7-15.3); LYMPH % 18.5 % (8-40); MCH 27.9 pg (25.7-33.7); MCHC 32.1 g/dl (32.0-36.0); MEAN PLT VOLUME 9.8 fl (7.5-11.1); MONO % 10.5 % (3.8-10.2); NEUT % 65.6 % (42.8-82.8); PLATELET COUNT 140 K/MM3 (134-434); RBC 4.03 M/mm3 (3.60-5.2); RDW 13.6 % (11.6-15.6); WHITE BLOOD COUNT 7.5 K/mm3 (4.0-10.0)
[2018-08-08 06:38] LABS: ALBUMIN 2.9 g/dl (3.4-5.0); ALK PHOS 60 U/L (45-117); ANION GAP 6 MMOL/L (8-16); BILIRUBIN,TOTAL 0.4 mg/dL (0.2-1); BLOOD UREA NITROGEN 40 mg/dL (7-18); CALCIUM 7.9 mg/dL (8.5-10.1); CHLORIDE 107 mmol/L (98-107); CO2 27 mmol/L (21-32); CREATININE 2.2 mg/dL (0.55-1.3); GLUCOSE,RANDOM 145 mg/dL (74-106); MAGNESIUM 1.9 mg/dL (1.8-2.4); PHOSPHOROUS 3.3 mg/dL (2.5-4.9); POTASSIUM 3.6 mmol/L (3.5-5.1); SGOT/AST 28 U/L (15-37); SGPT/ALT 25 U/L (13-61); SODIUM 140 mmol/L (136-145); TOT PROT 6.5 g/dl (6.4-8.2)
[2018-08-08] MEDS: INSULIN SLIDING SCALE (NOVOLOG) 1 VIAL SQ SCH ×4 (06:48→22:58)
--- NOTE | 2018-08-08 08:14 | PN ---
Physical Exam: SUBJECTIVE: Patient seen and examined. Denies pain, JUAREZ, vision changes, SOB, N/V OBJECTIVE: Vital Signs Period Temp Pulse Resp BP Sys/Luevano Pulse Ox Last 24 Hr 98 F-98.8 F 63-79 16-21 142-201/65-91 100-100 GENERAL: Awake, alert, and fully oriented, in no acute distress HEAD: No signs of trauma, normocephalic, atraumatic EYES: PERRLA, EOMI, sclera anicteric, conjunctiva clear ENT: Hearing grossly normal, nares patent, oropharynx clear without exudates. Moist mucosa LUNGS: No distress, speaks full sentences, clear to auscultation bilaterally HEART: Regular rate and rhythm, normal S1 and S2, holosystolic murmur (III/), peripheral pulses normal and equal bilaterally ABDOMEN: Soft, nontender, normoactive bowel sounds. No guarding, no rebound EXTREMITIES : Normal inspection, Normal range of motion, no edema. No clubbing or cyanosis NEUROLOGICAL: Cranial nerves II through XII grossly intact. Normal speech, no focal sensorimotor deficits SKIN: Warm, Dry Active Medications Generic Name Dose Route Start Last Admin Trade Name Freq PRN Reason Stop Dose Admin Aspirin 325 mg 08/07/18 10:00 08/07/18 09:03 Asa - PO 325 mg DAILY [facility] Administration Atorvastatin Calcium 10 mg 08/06/18 22:00 08/07/18 21:36 Lipitor - PO 10 mg HS [facility] Administration Chlorhexidine Gluconate 1 applic 08/06/18 22:00 08/07/18 21:37 Hibiclens For Decolonization - TP 1 applic HS [facility] Administration Nitroglycerin/Dextrose 25 mg in 250 mls @ 6 mls/hr 08/07/18 18:15 08/08/18 02 :38 Nitroglycerin 25mg/D5w 250ml IVPB 10 mcg/min TITR [facility] 6 mls/hr Administration Protocol 10 MCG/MIN Insulin Aspart 1 vial 08/06/18 16:30 08/08/18 06:48 Novolog Vial Sliding Scale - SQ 2 units ACHS [facility] Administration Protocol Labetalol HCl 200 mg 08/07/18 22:00 08/08/18 05:24 Normodyne - PO 200 mg TID [facility] Administration Mupirocin 1 applic 08/06/18 22:00 08/07/18 21:37 Bactroban Ointment (For Decolonization) - NS 08/11/18 21:59 1 applic BID [facility] Administration ASSESSMENT/PLAN: The patient is a 73F w/ a history HTN, HLD, and MVP who presents for evaluation of hypertensive emergency, BP 248/97 on arrival w/ associated troponinemia. The patient was initially given hydralazine with little effect and was subsequently started on a nitro gtt with interval improvement to SBP 190s. Ddx: stroke v TIA, hypoglycemia, HTN emergency; possible lyte abn, however lytes at baseline in ED Neuro AMS -A&Ox3 -Heat CT: no acute intracranial pathologyd -Carotid doppler - Mild atherosclerotic disease with no evidence of hemodynamically significant stenoses -Resolved, likely 2/2 HTN emergency CV Hypertensive Emergency -Patient weaned 08/07, however rebound HTN several hours later and gtt was restarted -Labetalol increased to 400mg PO TID today -Continue to wean nitro gtt Troponinemia -Likely demand ischemia -Now down trending, 0.15 --Will no longer trend -Denies chest pain, SOB, dizziness, or vision changes HLD -Continue home simvastatin PULM Breathing comfortably on room air, will CTM JESSE -Cr 2.2 from 1.8 -Will hold home lisinopril and HCTZ -1/2NS @ 75 HEME No anemia, will CTM DVT Ppx -Mechanical Ppx -Eliquis, ASA ID Afebrile, no leukocytosis ENDO T2DM -Will hold home glipizide -ISS -BGM Hypoglycemia -BG 249 this AM -Resolved LTD PIV Dispo: If able to wean nitro gtt, will transfer to floor Visit type - Emergency Visit Emergency Visit: Yes ED Registration Date: 08/06/18 Care time: The patient presented to the Emergency Department on the above date and was hospitalized for further evaluation of their emergent condition. - New Patient This patient is new to me today: No - Critical Care Critical Care patient: Yes Total Critical Care Time (in minutes): 35 Critical Care Statement: The care of this patient involved high complexity decision making to prevent further life threatening deterioration of the patient 's condition and/or to evaluate & treat vital organ system(s) failure or risk of failure.
[2018-08-08] MEDS ORDERED: SODIUM CHLORIDE 0.9% 500 ML INFUS.BAG IV ONE (08:18)
[2018-08-08] MEDS: SODIUM CHLORIDE 0.45% 1,000 ML IV SCH (08:35)
[2018-08-08] MEDS ORDERED: PT OWN MED DRAWER 7, Y5N ONE (09:10)
[2018-08-08] MEDS: ASPIRIN 325 MG TABLET PO SCH (10:06)
[2018-08-08] MEDS: MUPIROCIN 2% TOPICAL OINTMENT FOR DECOLONIZATION NS SCH (10:06)
[2018-08-08 12:17] LABS: C-PEPTIDE 2.2 ng/mL (1.1-4.4)
--- NOTE | 2018-08-08 13:00 | PN ---
Teaching Attending Note Name of Resident: Castro Zaragoza ATTENDING PHYSICIAN STATEMENT I saw and evaluated the patient. I reviewed the resident's note and discussed the case with the resident. I agree with the resident's findings and plan as documented. SUBJECTIVE: Pt seen and examined in the ICU. Remains on nitro gtt. Denies headache, nausea, chest pain or shortness of breath. OBJECTIVE: Vital Signs Period Temp Pulse Resp BP Sys/Luevano Pulse Ox Last 24 Hr 97.9 F-98.8 F 63-73 16-21 126-201/54-91 100-100 Intake & Output 08/05/18 08/06/18 08/07/18 08/08/18 23:59 23:59 23:59 23:59 Intake Total 100 360 342 Balance 100 360 342 Weight 67.755 kg 67.245 kg 69.173 kg Gen: NAD at rest Heart: RRR Lung: decreased breath sounds at the bases Abd: soft, nontender Ext: no edema CBC, BMP 08/08/18 05:30 08/08/18 05:30 Active Medications Aspirin (Asa -) 325 mg PO DAILY [facility] Last Admin: 08/08/18 10:06 Dose: 325 mg Atorvastatin Calcium (Lipitor -) 10 mg PO HS [facility] Last Admin: 08/07/18 21:36 Dose: 10 mg Chlorhexidine Gluconate (Hibiclens For Decolonization -) 1 applic TP HS [facility] Last Admin: 08/07/18 21:37 Dose: 1 applic Nitroglycerin/Dextrose (Nitroglycerin 25mg/D5w 250ml) 25 mg in 250 mls @ 6 mls/ hr IVPB TITR [facility]; Protocol Last Titration: 08/08/18 10:00 Dose: 8 mcg/min, 4.8 mls/hr Sodium Chloride (1/2 Normal Saline) 1,000 mls @ 75 mls/hr IV ASDIR [facility] Last Admin: 08/08/18 08:35 Dose: 75 mls/hr Insulin Aspart (Novolog Vial Sliding Scale -) 1 vial SQ ACHS [facility]; Protocol Last Admin: 08/08/18 11:25 Dose: 2 units Labetalol HCl (Normodyne -) 400 mg PO TID [facility] ASSESSMENT AND PLAN: Hypertensive Urgency Altered Mental Status improved Hypoglycemia +Troponins likely Demand Ischemia LV Diastolic Dysfunction Acute Kidney Injury DM Hyperlipidemia - titrate up labetalol - titrate off nitro gtt - monitor BGM - IVF - monitor urine output, creatinine - PO as tolerated - DVT prophylaxis - can monitor on floor when off nitro gtt
[2018-08-08 13:07] VITALS: BMI 27.8
--- NOTE | 2018-08-08 13:40 | CON.CARD ---
Consult Consult Specialty:: Cardiology Reason for Consultation:: HTN - History of Present Illness History of Present Illness: 73 yo F with HTN, DM, HLD, who presented to the ED because of confusion and altered mental status. The daughter says patient was awake but not responsive to commands for a few hours. The daughter states her mother "froze" while opening Vilma presents and was staring into space. She has a history of labile BP and describes frequent office visits where BP is initially high. In ED noted to have severe HTN and hypoglycemia. Placed on NG drip. No dyspnea, chest pain or palpitations. In ICU there have been no arrhythmias. No prior history of CAD. - History Source History Provided By: Patient, Medical Record Limitations to Obtaining History: No Limitations - Past Medical History Cardio/Vascular: Yes: HTN - Alcohol/Substance Use Hx Alcohol Use: No - Smoking History Smoking history: Never smoked Have you smoked in the past 12 months: No Home Medications - Allergies Allergies/Adverse Reactions: Allergies Allergy/AdvReac Type Severity Reaction Status Date / Time amlodipine [From [facility]] Allergy Verified 08/06/18 12:38 - Home Medications Home Medications: Ambulatory Orders Aspirin [ASA -] 325 mg PO DAILY 08/06/18 Glipizide 5 mg PO BID 08/06/18 Hydrochlorothiazide 25 mg PO DAILY 08/06/18 Lisinopril 20 mg PO BID 08/06/18 Simvastatin 10 mg PO HS 08/06/18 Review of Systems - Review of Systems Constitutional: reports: No Symptoms Eyes: reports: No Symptoms HENT: reports: No Symptoms Neck: reports: No Symptoms Cardiovascular: reports: No Symptoms. denies: Chest Pain, Edema, Palpitations, Shortness of Breath Respiratory: reports: No Symptoms. denies: Cough, Exercise Intolerance Gastrointestinal: reports: No Symptoms Vital Signs: Vital Signs Temperature 98.0 F 08/08/18 12:00 Pulse Rate 70 08/08/18 12:00 Respiratory Rate 17 08/08/18 12:00 Blood Pressure 150/73 08/08/18 12:00 O2 Sat by Pulse Oximetry (%) 100 08/08/18 08:00 Constitutional: Yes: Well Nourished, No Distress, Calm Eyes: Yes: Conjunctiva Clear, EOM Intact HENT: Yes: Atraumatic, Normocephalic Neck: Yes: Supple, Trachea Midline Respiratory: Yes: Regular, CTA Bilaterally Gastrointestinal: Yes: Normal Bowel Sounds, Soft Cardiovascular: Yes: Regular Rate and Rhythm Heart Sounds: Yes: S1, S2 Edema: No Peripheral Pulses WNL: No - Other Data Labs, Other Data: CBC, BMP 08/08/18 05:30 08/08/18 05:30 INR, PTT INR 1.12 (0.83-1.09) H 08/07/18 05:30 Troponin, BNP 08/07/18 20:15 Troponin I 0.15 H Troponin, BNP 08/07/18 20:15 Troponin I 0.15 H NSR LVH with repolarization abnormality. Echo: Report Reviewed Problem List - Problems (1) Hypertensive emergency Code(s): I16.1 - HYPERTENSIVE EMERGENCY Assessment/Plan 73 yo F with HTN, DM, HLD, who presented with altered mental status. In ED noted to have HTN emergency and hypoglycemia. Placed on NG drip. No dyspnea, chest pain or palpitations. In ICU there have been no arrhythmias. No prior history of CAD. 1. HTN: Renal US reviewed. Improved with labetalol. Is on minimal NTG. Continue Labetalol 400mg tid. Goal SBP < 180mmhg for now. DC nitro drip. Will likely add Nifedipine Will continue to monitor BP on current dosing of labetalol. 2. Positive Troponin Due to demand mediated ischemia. Cont Statin
--- NOTE | 2018-08-08 14:38 | PN ---
Physical Exam: SUBJECTIVE: Patient seen and examined at bedside this morning. No acute events overnight. Patient had 1 episode of elevated BP of 201/91 yesterday after walking around. She received Labetalol 10mg IV and PO was increased to 200mg TID , otherwise BP remained stable overnight at Nitro 6mg/hr. Her blood sugar has ranged from 100-200. 10 units of insulin given the last 24 hours. Today patient denies any headache, dizziness, chest pain, SOB, palpitations, fever, chills, nausea, vomiting, abdominal pain, diarrhea. OBJECTIVE: Vital Signs Period Temp Pulse Resp BP Sys/Luevano Pulse Ox Last 24 Hr 97.9 F-98.8 F 63-73 16-21 126-201/54-91 100-100 GENERAL: The patient is awake, alert, and fully oriented, in no acute distress. HEAD: Normal with no signs of trauma. EYES: PERRLA, EOMI, sclera anicteric, conjunctiva clear. ENT: Ears normal, nares patent, oropharynx clear without exudates, moist mucous membranes. NECK: Trachea midline, full range of motion, supple. LUNGS: Breath sounds equal, clear to auscultation bilaterally. HEART: Regular rate and rhythm, +holosystolic murmur. ABDOMEN: Soft, nontender, nondistended, normoactive bowel sounds. EXTREMITIES: 2+ pulses, warm, well-perfused, no edema. NEUROLOGICAL: Cranial nerves II through XII grossly intact. Normal speech, gait not observed. PSYCH: Normal mood, normal affect. SKIN: Warm, dry, normal turgor, no rashes or lesions noted Laboratory Results - last 24 hr 08/07/18 08/07/18 08/07/18 05:30 16:54 20:15 WBC RBC Hgb Hct MCV MCH MCHC RDW Plt Count MPV Absolute Neuts (auto) Neutrophils % Lymphocytes % Monocytes % Eosinophils % Basophils % Nucleated RBC % Sodium Potassium Chloride Carbon Dioxide Anion Gap BUN Creatinine Creat Clearance w eGFR POC Glucometer [phone] Random Glucose C-Peptide 2.2 Calcium Phosphorus Magnesium Total Bilirubin AST ALT Alkaline Phosphatase Troponin I 0.15 H Total Protein Albumin Ur Random Sodium Ur Random Chloride Urine Creatinine 08/07/18 08/08/18 08/08/18 21:32 05:30 05:30 WBC 7.5 RBC 4.03 Hgb 11.3 Hct 35.1 MCV 87.0 MCH 27.9 MCHC 32.1 RDW 13.6 Plt Count 140 MPV 9.8 Absolute Neuts (auto) 4.9 Neutrophils % 65.6 Lymphocytes % 18.5 Monocytes % 10.5 H Eosinophils % 4.5 Basophils % 0.9 Nucleated RBC % 0 Sodium 140 Potassium 3.6 Chloride 107 Carbon Dioxide 27 Anion Gap 6 L BUN 40 H Creatinine 2.2 H Creat Clearance w eGFR 22.00 POC Glucometer [phone] Random Glucose 145 H C-Peptide Calcium 7.9 L Phosphorus 3.3 Magnesium 1.9 Total Bilirubin 0.4 AST 28 ALT 25 Alkaline Phosphatase 60 Troponin I Total Protein 6.5 Albumin 2.9 L Ur Random Sodium Ur Random Chloride Urine Creatinine 08/08/18 08/08/18 08/08/18 06:23 11:10 11:10 WBC RBC Hgb Hct MCV MCH MCHC RDW Plt Count MPV Absolute Neuts (auto) Neutrophils % Lymphocytes % Monocytes % Eosinophils % Basophils % Nucleated RBC % Sodium Potassium Chloride Carbon Dioxide Anion Gap BUN Creatinine Creat Clearance w eGFR POC Glucometer [phone] Random Glucose C-Peptide Calcium Phosphorus Magnesium Total Bilirubin AST ALT Alkaline Phosphatase Troponin I Total Protein Albumin Ur Random Sodium 33 L Ur Random Chloride 72 L Urine Creatinine 162.0 H Active Medications Generic Name Dose Route Start Last Admin Trade Name Winstonq PRN Reason Stop Dose Admin Aspirin 325 mg 08/07/18 10:00 08/08/18 10:06 Asa - PO 325 mg DAILY CHAIM Administration Atorvastatin Calcium 10 mg 08/06/18 22:00 08/07/18 21:36 Lipitor - PO 10 mg HS CHAIM Administration Chlorhexidine Gluconate 1 applic 08/06/18 22:00 08/07/18 21:37 Hibiclens For Decolonization - TP 1 applic HS CHAIM Administration Nitroglycerin/Dextrose 25 mg in 250 mls @ 6 mls/hr 08/07/18 18:15 08/08/18 13 :45 Nitroglycerin 25mg/D5w 250ml IVPB 6 mcg/min TITR CHAIM 3.6 mls/hr Titration Protocol 10 MCG/MIN Sodium Chloride 1,000 mls @ 75 mls/hr 08/08/18 08:30 08/08/18 08:35 1/2 Normal Saline IV 75 mls/hr ASDIR CHAIM Administration Insulin Aspart 1 vial 08/06/18 16:30 08/08/18 11:25 Novolog Vial Sliding Scale - SQ 2 units ACHS CHAIM Administration Protocol Labetalol HCl 400 mg 08/08/18 10:58 08/08/18 13:57 Normodyne - PO 400 mg TID CHAIM Administration ASSESSMENT/PLAN: Patient is a 73 year old female with past medical history of HTN, DM, and HLD, presented with confusion and altered mental status and was noted to have hypoglycemia and elevated blood pressure. #Altered mental status: likely 2/2 Hypertensive urgency vs Hypoglycemia -patient is now AAOx3 and has not had any episodes of AMS since admission -Heat CT: no acute intracranial pathologyd -Carotid doppler - Mild atherosclerotic disease with no evidence of hemodynamically significant stenoses -Echo -Speech and swallow evaluation -Tight glucose control -Tight blood pressure control -Neurology (Dr. Gama) consulted. Recommendations appreciated. -Admit to monitored setting -DVT prophylaxis -Continue full aspirin and statin -Stroke education #Hypertensive Emergency -still on Nitro drip. will wean off -Labetalol 100mg PO TID increased to 400mg TID -Hydralazine 25mg BID started. -Cardiology (Dr. Damon) consulted. Recommendations appreciated. -Patient on minimal NTG -DC nitro drip -Will likely add Nifedipine. -Will continue to monitor BP. #Troponinemia -likely 2/2 demand ischemia -0.15 --> 0.26 -will continue to trend -Echo done #Hypoglycemia: resolved -patient has hx of DM -Hold home medications for now -Glu 31 at the ED. D50 given -Glu stable today at 120-200 -Insulin sliding scale implemented -BGM ACHS -Will discharge patient probably on Metformin, will decrease or stop glipizide as it causes hypoglycemia. #Hyperlipidemia -Continue Lipitor 10mg PO HS #JESSE -BUN/Cr 38/1.8 --> 40/2.2 -Hold home medications lisinopril and HCTZ -Avoid nephrotoxic agents such as NSAIDs, aminoglycosides and contrast. -Nephrology (Dr. Pham) consulted. Recommendations appreciated. 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 #Prophylaxis -Lovenox 40mg sq daily -ASA 325mg daily #Disposition -full code -ICU for closer monitoring -Will transfer to floor as per ICU team once weaned off Nitro drip Visit type - Emergency Visit Emergency Visit: Yes ED Registration Date: 08/06/18 Care time: The patient presented to the Emergency Department on the above date and was hospitalized for further evaluation of their emergent condition. - New Patient This patient is new to me today: No - Critical Care Critical Care patient: Yes Total Critical Care Time (in minutes): 40 Critical Care Statement: The care of this patient involved high complexity decision making to prevent further life threatening deterioration of the patient 's condition and/or to evaluate & treat vital organ system(s) failure or risk of failure.
--- NOTE | 2018-08-08 14:55 | PN ---
Teaching Attending Note Name of Resident: Dolores Mcwilliams ATTENDING PHYSICIAN STATEMENT I saw and evaluated the patient. I reviewed the resident's note and discussed the case with the resident. I agree with the resident's findings and plan as documented. SUBJECTIVE: seen at 9:30 am no fever or chills . no PC , no SOB . denies any JUAREZ or visual changes. OBJECTIVE: NAD. AAox3 MMM, no facial droop CV: RRR, 3/6 SM all over precordium best heard over LLSB and apex with radiation to L axilla Lungs: CTAB Abd: soft, NT, ND , NL BS . no bruits over renal arteries ext: no edema or erythema ASSESSMENT AND PLAN: 73 y/o lady with h/o HTN, HLP, and DM who presented with AMS and was found to have hypoglycemia and HTN emergency 1- HTN emergency: BP improved on po labetalol and Nitro gtt . 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 - nifedipine can be used if needed 2- elevated trop : EKG with TWIn in lateral leads. trop peaked and trended down . possible demand ischemia in settingof HTN emergency - monitor - might need ischemic w/u as out pt 3- JESSE : unknown base line . - cr cont to increase, probably will peak soon. - US with no obstruction - consult renal - IVF - pt does not remember her PCP phone number to obtain Cr base line 4- AMS: due to hypoglycemia. resolved 5- Hypoglycemia : due to glipizide A1c 6.5 - at dc will stop glipizide and place on metformin or januvia depending on her cr 6- can transfer to tele if off NGT gtt Critical Care Total Critical Care Time (in minutes): 40 Critical Care Statement: The care of this patient involved high complexity decision making to prevent further life threatening deterioration of the patient 's condition and/or to evaluate & treat vital organ system(s) failure or risk of failure.
--- NOTE | 2018-08-08 16:03 | CONSULT ---
Consult Consult Specialty:: Nephrology Reason for Consultation:: JESSE - History of Present Illness Chief Complaint: change in mental status History of Present Illness: Pt is a 73 year old female with pmhx of HTN, HLD, and DM who presented to the ER with altered mental status. She had suddenly "froze" in the morning when they were opening presents. She does not remember what happened. She was answering yes and no to questions at the time. She slowly normalized. She was found to be hypertensive in the ER and was admitted to the ICU. She was started on a nitro drip. She was found to be in renal failure and I was called to evaluate her. She denies history of CKD. She denies dysuria. She denies hematuria or dysuria. She denies fevers or chills. - History Source History Provided By: Patient, Medical Record - Past Medical History Cardio/Vascular: Yes: HTN Endocrine: Yes: Diabetes Mellitus - Alcohol/Substance Use Hx Alcohol Use: No - Smoking History Smoking history: Never smoked Have you smoked in the past 12 months: No Home Medications - Allergies Allergies/Adverse Reactions: Allergies Allergy/AdvReac Type Severity Reaction Status Date / Time amlodipine [From [facility]] Allergy Verified 08/06/18 12:38 - Home Medications Home Medications: Ambulatory Orders Aspirin [ASA -] 325 mg PO DAILY 08/06/18 Glipizide 5 mg PO BID 08/06/18 Hydrochlorothiazide 25 mg PO DAILY 08/06/18 Lisinopril 20 mg PO BID 08/06/18 Simvastatin 10 mg PO HS 08/06/18 Family Disease History - Family Disease History Family History: Denies Review of Systems - Review of Systems Constitutional: denies: Chills Eyes: reports: No Symptoms HENT: reports: No Symptoms Neck: reports: No Symptoms Cardiovascular: reports: No Symptoms Respiratory: reports: No Symptoms Gastrointestinal: reports: No Symptoms Genitourinary: reports: No Symptoms Musculoskeletal: reports: No Symptoms Integumentary: reports: No Symptoms Neurological: reports: Change in LOC Endocrine: reports: No Symptoms Hematology/Lymphatic: reports: No Symptoms Physical Exam Vital Signs: Vital Signs Temperature 98.1 F 08/08/18 14:00 Pulse Rate 70 08/08/18 14:00 Respiratory Rate 16 08/08/18 14:00 Blood Pressure 127/58 L 08/08/18 14:00 O2 Sat by Pulse Oximetry (%) 100 08/08/18 08:00 Constitutional: Yes: Calm Eyes: Yes: Conjunctiva Clear HENT: Yes: Atraumatic Neck: Yes: Supple Cardiovascular: Yes: S1, S2 Respiratory: Yes: CTA Bilaterally Gastrointestinal: Yes: Soft Renal/: Yes: WNL Musculoskeletal: Yes: WNL Edema: No Neurological: Yes: Oriented Psychiatric: Yes: Oriented Labs: CBC, BMP 08/08/18 05:30 08/08/18 05:30 Selected Entries 08/06/18 08/08/18 08/08/18 19:40 10:00 12:00 Blood Pressure 174/85 H 126/54 L 150/73 08/08/18 14:00 Blood Pressure 127/58 L Laboratory Tests 08/06/18 08/06/18 08/06/18 13:09 13:09 14:10 Hgb 13.6 BUN Creatinine 1.9 H Urine Protein Negative Urine Glucose (UA) 2+ H Urine Blood Negative HOMERO Screen 08/07/18 08/07/18 08/07/18 05:30 05:30 05:30 Hgb 12.2 BUN Creatinine 1.8 H Urine Protein Urine Glucose (UA) Urine Blood [facility]OMERO Screen Pending 08/08/18 05:30 Hgb BUN 40 H Creatinine 2.2 H Urine Protein Urine Glucose (UA) Urine Blood [facility] Screen Imaging - Results Cat Scan: Report Reviewed Ultrasound: Report Reviewed Problem List - Problems (1) JESSE (acute kidney injury) Code(s): N17.9 - ACUTE KIDNEY FAILURE, UNSPECIFIED (2) Hypertensive emergency Code(s): I16.1 - HYPERTENSIVE EMERGENCY (3) TIA (transient ischemic attack) Code(s): G45.9 - TRANSIENT CEREBRAL ISCHEMIC ATTACK, UNSPECIFIED Assessment/Plan Current Medications Generic Name Dose Route Start Last Admin Trade Name Freq PRN Reason Stop Dose Admin Aspirin 325 mg 08/07/18 10:00 08/08/18 10:06 Asa - PO 325 mg DAILY CHAIM Administration Atorvastatin Calcium 10 mg 08/06/18 22:00 08/07/18 21:36 Lipitor - PO 10 mg HS CHAIM Administration Chlorhexidine Gluconate 1 applic 08/06/18 22:00 08/07/18 21:37 Hibiclens For Decolonization - TP 1 applic HS CHAIM Administration Nitroglycerin/Dextrose 25 mg in 250 mls @ 6 mls/hr 08/07/18 18:15 08/08/18 13 :45 Nitroglycerin 25mg/D5w 250ml IVPB 6 mcg/min TITR CHAIM 3.6 mls/hr Titration Protocol 10 MCG/MIN Sodium Chloride 1,000 mls @ 75 mls/hr 08/08/18 08:30 08/08/18 08:35 1/2 Normal Saline IV 75 mls/hr ASDIR CHAIM Administration Insulin Aspart 1 vial 08/06/18 16:30 08/08/18 11:25 Novolog Vial Sliding Scale - SQ 2 units ACHS CHAIM Administration Protocol Labetalol HCl 400 mg 08/08/18 10:58 08/08/18 13:57 Normodyne - PO 400 mg TID CHAIM Administration Impression 1. JESSE vs CKD - unclear baseline 2. TIA 3. hypertensive emergency 4. HLD 5. 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
[2018-08-08] MEDS: hydrALAZINE HCL 25 MG TABLET (FP) PO SCH ×2 (17:55→21:09)
[2018-08-08] MEDS: ATORVASTATIN CA 10 MG TABLET (FP) PO SCH (21:09)
[2018-08-08] MEDS: CHLORHEXIDINE GLUCONATE 4% CLEANSER FOR DECOLONIZATION TP SCH (22:35)
[2018-08-09] MEDS: LABETALOL HCL 100 MG TABLET (FP) PO SCH ×2 (05:44→14:06)
[2018-08-09 05:45] LABS: EOS % 7.6 % (0-4.5); HEMATOCRIT 33.8 % (32.4-45.2); HEMOGLOBIN 10.9 GM/dL (10.7-15.3); LYMPH % 22.5 % (8-40); MCH 27.9 pg (25.7-33.7); MCHC 32.2 g/dl (32.0-36.0); MEAN CELL VOLUME 86.7 fl (80-96); MEAN PLT VOLUME 10.2 fl (7.5-11.1); MONO % 10.7 % (3.8-10.2); NEUT % 58.2 % (42.8-82.8); PLATELET COUNT 130 K/MM3 (134-434); RDW 13.6 % (11.6-15.6); WHITE BLOOD COUNT 5.7 K/mm3 (4.0-10.0)
[2018-08-09] MEDS: INSULIN SLIDING SCALE (NOVOLOG) 1 VIAL SQ SCH ×4 (06:25→22:13)
[2018-08-09 06:30] LABS: ALBUMIN 2.8 g/dl (3.4-5.0); ALK PHOS 70 U/L (45-117); ANION GAP 8 MMOL/L (8-16); BILIRUBIN,TOTAL 0.4 mg/dL (0.2-1); BLOOD UREA NITROGEN 36 mg/dL (7-18); CALCIUM 7.9 mg/dL (8.5-10.1); CHLORIDE 107 mmol/L (98-107); CO2 25 mmol/L (21-32); CREATININE 1.8 mg/dL (0.55-1.3); GLUCOSE,RANDOM 154 mg/dL (74-106); PHOSPHOROUS 3.2 mg/dL (2.5-4.9); POTASSIUM 3.4 mmol/L (3.5-5.1); SGOT/AST 59 U/L (15-37); SGPT/ALT 49 U/L (13-61); SODIUM 139 mmol/L (136-145); TOT PROT 6.2 g/dl (6.4-8.2)
--- NOTE | 2018-08-09 07:26 | PN ---
Physical Exam: SUBJECTIVE: Patient seen and examined. Patient denies issues overnight. Denies pain, JUAREZ, vision changes, chest pain, SOB, N/V/C/D. OBJECTIVE: Vital Signs Period Temp Pulse Resp BP Sys/Luevano Pulse Ox Last 24 Hr 97.6 F-98.2 F 54-72 14-19 124-179/54-95 100-100 GENERAL: Awake, alert, and fully oriented, in no acute distress HEAD: No signs of trauma, normocephalic, atraumatic EYES: PERRLA, EOMI, sclera anicteric, conjunctiva clear ENT: Hearing grossly normal, nares patent, oropharynx clear without exudates. Moist mucosa LUNGS: No distress, speaks full sentences, clear to auscultation bilaterally HEART: Regular rate and rhythm, normal S1 and S2, holosystolic murmur (III/), peripheral pulses normal and equal bilaterally ABDOMEN: Soft, nontender, normoactive bowel sounds. No guarding, no rebound EXTREMITIES : Normal inspection, Normal range of motion, no edema. No clubbing or cyanosis NEUROLOGICAL: Cranial nerves II through XII grossly intact. Normal speech, no focal sensorimotor deficits SKIN: Warm, Dry Active Medications Generic Name Dose Route Start Last Admin Trade Name Freq PRN Reason Stop Dose Admin Aspirin 325 mg 08/07/18 10:00 08/08/18 10:06 Asa - PO 325 mg DAILY CHAIM Administration Atorvastatin Calcium 10 mg 08/06/18 22:00 08/08/18 21:09 Lipitor - PO 10 mg HS CHAIM Administration Chlorhexidine Gluconate 1 applic 08/06/18 22:00 08/08/18 22:35 Hibiclens For Decolonization - TP 1 applic HS CHAIM Administration Hydralazine HCl 25 mg 08/08/18 17:15 08/08/18 21:09 Apresoline - PO 25 mg BID CHAIM Administration Nitroglycerin/Dextrose 25 mg in 250 mls @ 6 mls/hr 08/07/18 18:15 08/08/18 18 :00 Nitroglycerin 25mg/D5w 250ml IVPB 2 mcg/min TITR CHAIM 1.2 mls/hr Titration Protocol 10 MCG/MIN Sodium Chloride 1,000 mls @ 75 mls/hr 08/08/18 08:30 08/08/18 08:35 1/2 Normal Saline IV 75 mls/hr ASDIR CHAIM Administration Insulin Aspart 1 vial 08/06/18 16:30 08/09/18 06:25 Novolog Vial Sliding Scale - SQ 2 units ACHS CHAIM Administration Protocol Labetalol HCl 400 mg 08/08/18 10:58 08/09/18 05:44 Normodyne - PO 400 mg TID CHAIM Administration ASSESSMENT/PLAN: The patient is a 73F w/ a history HTN, HLD, and MVP who presents for evaluation of hypertensive emergency, BP 248/97 on arrival w/ associated troponinemia. The patient was initially given hydralazine with little effect and was subsequently started on a nitro gtt with interval improvement to SBP 190s. Ddx: stroke v TIA, hypoglycemia, HTN emergency; possible lyte abn, however lytes at baseline in ED Neuro AMS -A&Ox3 -Heat CT: no acute intracranial pathologyd -Carotid doppler - Mild atherosclerotic disease with no evidence of hemodynamically significant stenoses -Resolved, likely 2/2 HTN emergency CV Hypertensive Emergency -Patient weaned 08/07, however rebound HTN several hours later and gtt was restarted -Labetalol increased to 400mg PO TID today -Hydralazine 25 PO BID -Improved, nitro gtt D/C'ed at 0745 Troponinemia -Likely demand ischemia -Now down trending, 0.15 --Will no longer trend -Denies chest pain, SOB, dizziness, or vision changes HLD -Continue home simvastatin PULM Breathing comfortably on room air, will CTM JESSE -Cr 1.8 -> 2.2 -> 1.8 -Improving -Will continue to hold home lisinopril and HCTZ -1/2NS @ 75 HEME No anemia, will CTM DVT Ppx -Mechanical Ppx -Eliquis, ASA ID Afebrile, no leukocytosis ENDO T2DM -Will hold home glipizide -ISS -BGM Hypoglycemia -Resolved LTD PIV Dispo: Patient no longer requires ICU level of care. Plan for transfer today. Visit type - Emergency Visit Emergency Visit: Yes ED Registration Date: 08/06/18 Care time: The patient presented to the Emergency Department on the above date and was hospitalized for further evaluation of their emergent condition. - New Patient This patient is new to me today: No - Critical Care Critical Care patient: Yes Total Critical Care Time (in minutes): 35 Critical Care Statement: The care of this patient involved high complexity decision making to prevent further life threatening deterioration of the patient 's condition and/or to evaluate & treat vital organ system(s) failure or risk of failure.
[2018-08-09] MEDS: SODIUM CHLORIDE 0.45% 1,000 ML IV SCH ×2 (08:46→14:07)
[2018-08-09] MEDS: ASPIRIN 325 MG TABLET PO SCH (09:27)
[2018-08-09] MEDS: hydrALAZINE HCL 25 MG TABLET (FP) PO SCH (09:27)
--- NOTE | 2018-08-09 11:47 | PN ---
Teaching Attending Note Name of Resident: Castro Zaragoza ATTENDING PHYSICIAN STATEMENT I saw and evaluated the patient. I reviewed the resident's note and discussed the case with the resident. I agree with the resident's findings and plan as documented. SUBJECTIVE: Patient seen and examined in the ICU. Remains off nitro drip. Denies headache, nausea, chest pain or shortness of breath. OBJECTIVE: Intake & Output 08/06/18 08/07/18 08/08/18 08/09/18 23:59 23:59 23:59 23:59 Intake Total 845 304 5724.9 533.4 Output Total 400 Balance 705 238 6050.9 533.4 Weight 149 lb 6 oz 148 lb 4 oz 152 lb 157 lb 1.6 oz Last Vital Signs Temp Pulse Resp BP Pulse Ox 97.6 F 61 16 128/63 100 08/09/18 06:00 08/09/18 10:00 08/09/18 10:00 08/09/18 10:00 08/09/18 07:45 Active Medications Aspirin (Asa -) 325 mg PO DAILY [facility] Last Admin: 08/09/18 09:27 Dose: 325 mg Atorvastatin Calcium (Lipitor -) 10 mg PO HS [facility] Last Admin: 08/08/18 21:09 Dose: 10 mg Chlorhexidine Gluconate (Hibiclens For Decolonization -) 1 applic TP HS [facility] Last Admin: 08/08/18 22:35 Dose: 1 applic Hydralazine HCl (Apresoline -) 25 mg PO BID [facility] Last Admin: 08/09/18 09:27 Dose: 25 mg Sodium Chloride (1/2 Normal Saline) 1,000 mls @ 75 mls/hr IV ASDIR [facility] Last Admin: 08/09/18 08:46 Dose: Not Given Insulin Aspart (Novolog Vial Sliding Scale -) 1 vial SQ ACHS [facility]; Protocol Last Admin: 08/09/18 11:05 Dose: 4 units Labetalol HCl (Normodyne -) 400 mg PO TID [facility] Last Admin: 08/09/18 05:44 Dose: 400 mg Gen: NAD at rest Heart: RRR Lung: decreased breath sounds at the bases Abd: soft, nontender Ext: no edema Laboratory Results - last 24 hr 08/07/18 08/08/18 08/08/18 05:30 11:10 11:10 WBC RBC Hgb Hct MCV MCH MCHC RDW Plt Count MPV Absolute Neuts (auto) Neutrophils % Lymphocytes % Monocytes % Eosinophils % Basophils % Nucleated RBC % Sodium Potassium Chloride Carbon Dioxide Anion Gap BUN Creatinine Creat Clearance w eGFR POC Glucometer Random Glucose C-Peptide 2.2 Calcium Phosphorus Magnesium Total Bilirubin AST ALT Alkaline Phosphatase Total Protein Albumin Ur Random Sodium 33 L Ur Random Potassium 75.9 Ur Random Chloride 72 L Urine Creatinine 162.0 H MELANI Screen Negative 08/08/18 08/08/18 08/08/18 11:22 16:15 22:00 WBC RBC Hgb Hct MCV MCH MCHC RDW Plt Count MPV Absolute Neuts (auto) Neutrophils % Lymphocytes % Monocytes % Eosinophils % Basophils % Nucleated RBC % Sodium Potassium Chloride Carbon Dioxide Anion Gap BUN Creatinine Creat Clearance w eGFR POC Glucometer 190.61081 231.51784 226.05765 Random Glucose C-Peptide Calcium Phosphorus Magnesium Total Bilirubin AST ALT Alkaline Phosphatase Total Protein Albumin Ur Random Sodium Ur Random Potassium Ur Random Chloride Urine Creatinine MELANI Screen 08/09/18 08/09/18 08/09/18 05:15 05:15 05:32 WBC 5.7 RBC 3.90 Hgb 10.9 Hct 33.8 MCV 86.7 MCH 27.9 MCHC 32.2 RDW 13.6 Plt Count 130 L MPV 10.2 Absolute Neuts (auto) 3.3 Neutrophils % 58.2 Lymphocytes % 22.5 D Monocytes % 10.7 H Eosinophils % 7.6 H Basophils % 1.0 Nucleated RBC % 0 Sodium 139 Potassium 3.4 L Chloride 107 Carbon Dioxide 25 Anion Gap 8 BUN 36 H Creatinine 1.8 H Creat Clearance w eGFR 27.74 POC Glucometer [phone] Random Glucose 154 H C-Peptide Calcium 7.9 L Phosphorus 3.2 Magnesium 2.0 Total Bilirubin 0.4 AST 59 H ALT 49 Alkaline Phosphatase 70 Total Protein 6.2 L Albumin 2.8 L Ur Random Sodium Ur Random Potassium Ur Random Chloride Urine Creatinine MELANI Screen 08/09/18 10:59 WBC RBC Hgb Hct MCV MCH MCHC RDW Plt Count MPV Absolute Neuts (auto) Neutrophils % Lymphocytes % Monocytes % Eosinophils % Basophils % Nucleated RBC % Sodium Potassium Chloride Carbon Dioxide Anion Gap BUN Creatinine Creat Clearance w eGFR POC Glucometer [phone] Random Glucose C-Peptide Calcium Phosphorus Magnesium Total Bilirubin AST ALT Alkaline Phosphatase Total Protein Albumin Ur Random Sodium Ur Random Potassium Ur Random Chloride Urine Creatinine MELANI Screen ASSESSMENT AND PLAN: Hypertensive Urgency Altered Mental Status improved Hypoglycemia +Troponins likely Demand Ischemia LV Diastolic Dysfunction Acute Kidney Injury DM Hyperlipidemia - titrate BP meds - monitor BGM - PO as tolerated - monitor urine output, creatinine - PO as tolerated - VTE prophylaxis - Floor Dr Arias
[2018-08-09] MEDS ORDERED: SODIUM CHLORIDE 0.45% 1,000 ML IV SCH (15:09)
--- NOTE | 2018-08-09 15:09 | PN ---
Progress Note, Physician History of Present Illness: Pt seen and examined at bedside. She is awake and alert. She denies shortness of breath or lower ext edema. - Current Medication List Current Medications: Active Medications Aspirin (Asa -) 325 mg PO DAILY [facility] Last Admin: 08/09/18 09:27 Dose: 325 mg Atorvastatin Calcium (Lipitor -) 10 mg PO HS [facility] Last Admin: 08/08/18 21:09 Dose: 10 mg Chlorhexidine Gluconate (Hibiclens For Decolonization -) 1 applic TP HS [facility] Last Admin: 08/08/18 22:35 Dose: 1 applic Hydralazine HCl (Apresoline -) 25 mg PO BID [facility] Last Admin: 08/09/18 09:27 Dose: 25 mg Sodium Chloride (1/2 Normal Saline) 1,000 mls @ 75 mls/hr IV ASDIR [facility] Last Admin: 08/09/18 14:07 Dose: 75 mls/hr Insulin Aspart (Novolog Vial Sliding Scale -) 1 vial SQ ACHS [facility]; Protocol Last Admin: 08/09/18 11:05 Dose: 4 units Labetalol HCl (Normodyne -) 400 mg PO TID [facility] Last Admin: 08/09/18 14:06 Dose: 400 mg Potassium Chloride (K-Dur -) 40 meq PO ONCE ONE Stop: 08/09/18 15:04 - Objective Vital Signs: Vital Signs Temperature 97.6 F 08/09/18 06:00 Pulse Rate 56 L 08/09/18 14:00 Respiratory Rate 13 08/09/18 14:00 Blood Pressure 127/64 08/09/18 14:00 O2 Sat by Pulse Oximetry (%) 100 08/09/18 07:45 Constitutional: Yes: Calm Eyes: Yes: Conjunctiva Clear HENT: Yes: Atraumatic Neck: Yes: Supple Cardiovascular: Yes: S1, S2 Respiratory: Yes: CTA Bilaterally Gastrointestinal: Yes: Soft Genitourinary: Yes: WNL Musculoskeletal: Yes: WNL Edema: No Neurological: Yes: Oriented Psychiatric: Yes: Oriented Labs: CBC, BMP 08/09/18 05:15 08/09/18 05:15 INR, PTT INR 1.12 (0.83-1.09) H 08/07/18 05:30 Problem List - Problems (1) JESSE (acute kidney injury) Code(s): N17.9 - ACUTE KIDNEY FAILURE, UNSPECIFIED (2) Hypertensive emergency Code(s): I16.1 - HYPERTENSIVE EMERGENCY (3) TIA (transient ischemic attack) Code(s): G45.9 - TRANSIENT CEREBRAL ISCHEMIC ATTACK, UNSPECIFIED Assessment/Plan Current Medications Generic Name Dose Route Start Last Admin Trade Name [place] PRN Reason Stop Dose Admin Aspirin 325 mg 08/07/18 10:00 08/09/18 09:27 Asa - PO 325 mg DAILY [facility] Administration Atorvastatin Calcium 10 mg 08/06/18 22:00 08/08/18 21:09 Lipitor - PO 10 mg HS [facility] Administration Chlorhexidine Gluconate 1 applic 08/06/18 22:00 08/08/18 22:35 Hibiclens For Decolonization - TP 1 applic HS [facility] Administration Hydralazine HCl 25 mg 08/08/18 17:15 08/09/18 09:27 Apresoline - PO 25 mg BID [facility] Administration Sodium Chloride 1,000 mls @ 75 mls/hr 08/08/18 08:30 08/09/18 14:07 1/2 Normal Saline IV 75 mls/hr ASDIR [facility] Administration Insulin Aspart 1 vial 08/06/18 16:30 08/09/18 11:05 Novolog Vial Sliding Scale - SQ 4 units ACHS [facility] Administration Protocol Labetalol HCl 400 mg 08/08/18 10:58 08/09/18 14:06 Normodyne - PO 400 mg TID [facility] Administration Potassium Chloride 40 meq 08/09/18 15:03 K-Dur - PO 08/09/18 15:04 ONCE ONE Laboratory Tests 08/06/18 08/07/18 14:10 05:30 Urine Protein Negative Urine Blood Negative DAKOTA M-Mak Pending DAKOTA Interpretation Pending MELANI Screen Negative Impression 1. JESSE vs CKD - unclear baseline 2. TIA 3. hypertensive emergency 4. HLD 5. DM Plan - renal function is starting to improve - waiting for outpt labs to be sent over to asses baseline mortgage loan closer - ua was negative for blood or protein - decrease rate of fluids - bp is improved - repeat labs in am - monitor bp - hold hctz for now - discussed with ICU team - will follow Dr Pham
--- NOTE | 2018-08-09 15:18 | PN ---
Progress Note, Physician Chief Complaint: No complaints. History of Present Illness: 73 yo F with HTN, DM, HLD, who presented to the ED because of confusion and altered mental status. The daughter says patient was awake but not responsive to commands for a few hours. The daughter states her mother "froze" while opening Vilma presents and was staring into space. She has a history of labile BP and describes frequent office visits where BP is initially high. In ED noted to have severe HTN and hypoglycemia. Placed on NG drip. No dyspnea, chest pain or palpitations. In ICU there have been no arrhythmias. No prior history of CAD. - Current Medication List Current Medications: Active Medications Aspirin (Asa -) 325 mg PO DAILY [facility] Last Admin: 08/09/18 09:27 Dose: 325 mg Atorvastatin Calcium (Lipitor -) 10 mg PO HS [facility] Last Admin: 08/08/18 21:09 Dose: 10 mg Chlorhexidine Gluconate (Hibiclens For Decolonization -) 1 applic TP HS [facility] Last Admin: 08/08/18 22:35 Dose: 1 applic Hydralazine HCl (Apresoline -) 25 mg PO BID [facility] Last Admin: 08/09/18 09:27 Dose: 25 mg Sodium Chloride (1/2 Normal Saline) 1,000 mls @ 40 mls/hr IV ASDIR [facility] Insulin Aspart (Novolog Vial Sliding Scale -) 1 vial SQ ACHS [facility]; Protocol Last Admin: 08/09/18 11:05 Dose: 4 units Labetalol HCl (Normodyne -) 400 mg PO TID [facility] Last Admin: 08/09/18 14:06 Dose: 400 mg Potassium Chloride (K-Dur -) 40 meq PO ONCE ONE Stop: 08/09/18 15:31 - Objective Vital Signs: Vital Signs Temperature 97.6 F 08/09/18 06:00 Pulse Rate 56 L 08/09/18 14:00 Respiratory Rate 13 08/09/18 14:00 Blood Pressure 127/64 08/09/18 14:00 O2 Sat by Pulse Oximetry (%) 100 08/09/18 07:45 Labs: CBC, BMP 08/09/18 05:15 08/09/18 05:15 INR, PTT INR 1.12 (0.83-1.09) H 08/07/18 05:30 Problem List - Problems (1) Hypertensive emergency Code(s): I16.1 - HYPERTENSIVE EMERGENCY Assessment/Plan 73 yo F with HTN, DM, HLD, who presented with altered mental status. In ED noted to have HTN emergency and hypoglycemia. Placed on NG drip. No dyspnea, chest pain or palpitations. In ICU there have been no arrhythmias. No prior history of CAD. 1. HTN: Continue labetalol and hydralazine although may need to change to nifedipine for ease of use and compliance. Close out patient follow up 2. Positive Troponin Due to demand mediated ischemia. Cont Statin FU as needed.
[2018-08-09] MEDS ORDERED: POTASSIUM CHLORIDE TABS 20 MEQ TABLET.ER (FP) PO ONE (15:30)
--- NOTE | 2018-08-09 17:30 | PN ---
Teaching Attending Note Name of Resident: Dolores Mcwilliams ATTENDING PHYSICIAN STATEMENT I saw and evaluated the patient. I reviewed the resident's note and discussed the case with the resident. I agree with the resident's findings and plan as documented. SUBJECTIVE: no fever or chills . no CP or SOB . NO JUAREZ OBJECTIVE: NAD. AAox3 MMM, no facial droop CV: RRR, 3/6 SM all over precordium best heard over LLSB and apex with radiation to L axilla Lungs: CTAB ext: no edema or erythema ASSESSMENT AND PLAN: 73 y/o lady with h/o HTN, HLP, and DM who presented with AMS and was found to have hypoglycemia and HTN emergency 1- HTN emergency: off nitor gtt this am - cont labetalool 400 TID. - dc Hydralazine and resume her home dose lisinopril 20 BID. ( CKD) . 2- Elevated trop : EKG with TWIn in lateral leads. trop peaked and trended down . possible demand ischemia in settingof HTN emergency - monitor - might need ischemic w/u as out pt 3-CKD: records obtained form PCP office. Cr base line 2.4 - dc IVF - need close follow up and more work up by renal. will refer to Dr. crump at dc 4- AMS/metabolic encephalopathy : due to hypoglycemia. resolved 5- Hypoglycemia : due to glipizide A1c 6.5 - at dc will stop glipizide and place on januvia 50 mg daily per cr clearance Tx out of ICU . BP is still uncontrolled. watch one more day with the new changes
--- NOTE | 2018-08-09 18:31 | PN ---
Physical Exam: SUBJECTIVE: Patient seen and examined at bedside this morning. No acute events overnight. Nitro drip discontinued this morning. SBPs maintained at 160-170 on oral medications. She denies any headache, dizziness, chest pain, SOB, palpitations, fever, chills, nausea, vomiting, abdominal pain or urinary symptoms. OBJECTIVE: Vital Signs Period Temp Pulse Resp BP Sys/L[place] Pulse Ox Last 24 Hr 97.6 F-98.2 F 53-64 13-19 124-168/60-83 100-100 GENERAL: The patient is awake, alert, and fully oriented, in no acute distress. HEAD: Normal with no signs of trauma. EYES: PERRLA, EOMI, sclera anicteric, conjunctiva clear. ENT: Ears normal, nares patent, oropharynx clear without exudates, moist mucous membranes. NECK: Trachea midline, full range of motion, supple. LUNGS: Breath sounds equal, clear to auscultation bilaterally. HEART: Regular rate and rhythm, +holosystolic murmur. ABDOMEN: Soft, nontender, nondistended, normoactive bowel sounds. EXTREMITIES: 2+ pulses, warm, well-perfused, no edema. NEUROLOGICAL: Cranial nerves II through XII grossly intact. Normal speech, gait not observed. PSYCH: Normal mood, normal affect. SKIN: Warm, dry, normal turgor, no rashes or lesions noted Laboratory Results - last 24 hr 08/07/18 08/08/18 08/08/18 05:30 11:22 16:15 WBC RBC Hgb Hct MCV MCH MCHC RDW Plt Count MPV Absolute Neuts (auto) Neutrophils % Lymphocytes % Monocytes % Eosinophils % Basophils % Nucleated RBC % Sodium Potassium Chloride Carbon Dioxide Anion Gap BUN Creatinine Creat Clearance w eGFR POC Glucometer 190.90446 231.73017 Random Glucose Calcium Phosphorus Magnesium Total Bilirubin AST ALT Alkaline Phosphatase Total Protein Albumin MELANI Screen Negative 08/08/18 08/09/18 08/09/18 22:00 05:15 05:15 WBC 5.7 RBC 3.90 Hgb 10.9 Hct 33.8 MCV 86.7 MCH 27.9 MCHC 32.2 RDW 13.6 Plt Count 130 L MPV 10.2 Absolute Neuts (auto) 3.3 Neutrophils % 58.2 Lymphocytes % 22.5 D Monocytes % 10.7 H Eosinophils % 7.6 H Basophils % 1.0 Nucleated RBC % 0 Sodium 139 Potassium 3.4 L Chloride 107 Carbon Dioxide 25 Anion Gap 8 BUN 36 H Creatinine 1.8 H Creat Clearance w eGFR 27.74 POC Glucometer 226.71453 Random Glucose 154 H Calcium 7.9 L Phosphorus 3.2 Magnesium 2.0 Total Bilirubin 0.4 AST 59 H ALT 49 Alkaline Phosphatase 70 Total Protein 6.2 L Albumin 2.8 L MELANI Screen 08/09/18 08/09/18 08/09/18 05:32 10:59 16:19 WBC RBC Hgb Hct MCV MCH MCHC RDW Plt Count MPV Absolute Neuts (auto) Neutrophils % Lymphocytes % Monocytes % Eosinophils % Basophils % Nucleated RBC % Sodium Potassium Chloride Carbon Dioxide Anion Gap BUN Creatinine Creat Clearance w eGFR POC Glucometer 167.11134 232.90855 198.95830 Random Glucose Calcium Phosphorus Magnesium Total Bilirubin AST ALT Alkaline Phosphatase Total Protein Albumin MELANI Screen Active Medications Generic Name Dose Route Start Last Admin Trade Name Freq PRN Reason Stop Dose Admin Atorvastatin Calcium 10 mg 08/06/18 22:00 08/08/18 21:09 Lipitor - PO 10 mg HS [facility] Administration Chlorhexidine Gluconate 1 applic 08/06/18 22:00 08/08/18 22:35 Hibiclens For Decolonization - TP 1 applic HS [facility] Administration Insulin Aspart 1 vial 08/06/18 16:30 08/09/18 16:24 Novolog Vial Sliding Scale - SQ 2 units ACHS [facility] Administration Protocol Labetalol HCl 400 mg 08/08/18 10:58 08/09/18 14:06 Normodyne - PO 400 mg TID [facility] Administration Lisinopril 20 mg 08/09/18 22:00 Prinivil PO BID [facility] ASSESSMENT/PLAN: Patient is a 73 year old female with past medical history of HTN, DM, and HLD, presented with confusion and altered mental status and was noted to have hypoglycemia and elevated blood pressure. #Altered mental status: likely 2/2 Hypertensive urgency vs Hypoglycemia -patient is now AAOx3 and has not had any episodes of AMS since admission -Heat CT: no acute intracranial pathology -Carotid doppler - Mild atherosclerotic disease with no evidence of hemodynamically significant stenoses -Echo done -Speech and swallow evaluation -Tight glucose control -Tight blood pressure control -Neurology (Dr. Gama) consulted. Recommendations appreciated. #Hypertensive Emergency -Weaned of nitro drip -Labetalol 400mg TID -Hydralazine 25mg BID discontinued -Start home Lisinopril 20mg BID -Will continue to monitor BP. #Troponinemia: resolved -likely 2/2 demand ischemia -0.15 --> 0.26 --> 0.15 -Echo done #Hypoglycemia: resolved -patient has hx of DM -Glu 31 at the ED. D50 given -Glu stable today at 120-200 -Baseline HbA1c (6.6) -Insulin sliding scale implemented -BGM ACHS -Home med Glipizide discontinued. -Will start Januvia 50mg daily upon discharge. #Hyperlipidemia -Continue Lipitor 10mg PO HS #JESSE -BUN/Cr 40/2.2 --> 36/1.8 -Baseline BUN/Cr (44/2.1) -Avoid nephrotoxic agents such as NSAIDs, aminoglycosides and contrast. -Nephrology (Dr. Pham) consulted. Recommendations appreciated. -will need to obtain outpatient labs to check baseline house player -Follow MELANI -repeat labs in am #FEN -Not on any standing fluids. -Electrolytes wnl, routine bmp monitoring -Sodium controlled diet. #Prophylaxis -Lovenox 40mg sq daily #Disposition -full code -For transfer to floors. -For possible discharge tomorrow. Visit type - Emergency Visit Emergency Visit: Yes ED Registration Date: 08/06/18 Care time: The patient presented to the Emergency Department on the above date and was hospitalized for further evaluation of their emergent condition. - New Patient This patient is new to me today: No - Critical Care Critical Care patient: Yes Total Critical Care Time (in minutes): 40 Critical Care Statement: The care of this patient involved high complexity decision making to prevent further life threatening deterioration of the patient 's condition and/or to evaluate & treat vital organ system(s) failure or risk of failure.
[2018-08-09] MEDS ORDERED: CHLORHEXIDINE GLUCONATE 4% CLEANSER FOR DECOLONIZATION TP SCH (22:00)
[2018-08-09] MEDS ORDERED: ATORVASTATIN CA 10 MG TABLET (FP) PO SCH (22:00)
[2018-08-09] MEDS: LISINOPRIL 20 MG TABLET (FP) PO SCH (22:04)
[2018-08-09] MEDS: LABETALOL HCL 200 MG TABLET (FP) PO SCH (22:04)
[2018-08-10] MEDS: LABETALOL HCL 200 MG TABLET (FP) PO SCH (06:50)
[2018-08-10] MEDS: INSULIN SLIDING SCALE (NOVOLOG) 1 VIAL SQ SCH ×2 (06:53→11:31)
[2018-08-10 08:26] LABS: EOS % 8.2 % (0-4.5); HEMATOCRIT 34.1 % (32.4-45.2); LYMPH % 19.1 % (8-40); MCHC 32.3 g/dl (32.0-36.0); MEAN CELL VOLUME 86.9 fl (80-96); MEAN PLT VOLUME 9.7 fl (7.5-11.1); MONO % 9.4 % (3.8-10.2); NEUT % 62.3 % (42.8-82.8); PLATELET COUNT 139 K/MM3 (134-434); RBC 3.92 M/mm3 (3.60-5.2); RDW 13.6 % (11.6-15.6); WHITE BLOOD COUNT 5.6 K/mm3 (4.0-10.0)
[2018-08-10 08:53] LABS: ALBUMIN 2.8 g/dl (3.4-5.0); ALK PHOS 90 U/L (45-117); ANION GAP 8 MMOL/L (8-16); BILIRUBIN,TOTAL 0.3 mg/dL (0.2-1); BLOOD UREA NITROGEN 33 mg/dL (7-18); CALCIUM 8.2 mg/dL (8.5-10.1); CHLORIDE 109 mmol/L (98-107); CO2 24 mmol/L (21-32); CREATININE 1.8 mg/dL (0.55-1.3); GLUCOSE,RANDOM 123 mg/dL (74-106); MAGNESIUM 2.2 mg/dL (1.8-2.4); PHOSPHOROUS 3.5 mg/dL (2.5-4.9); POTASSIUM 3.9 mmol/L (3.5-5.1); SGOT/AST 59 U/L (15-37); SGPT/ALT 58 U/L (13-61); SODIUM 141 mmol/L (136-145); TOT PROT 6.2 g/dl (6.4-8.2)
[2018-08-10 09:16] VITALS: BP 158/75; PULSE 54; TEMP 98
[2018-08-10] MEDS: LISINOPRIL 20 MG TABLET (FP) PO SCH (09:17)
--- NOTE | 2018-08-10 11:12 | PN ---
Teaching Attending Note Name of Resident: Joy Blair ATTENDING PHYSICIAN STATEMENT I saw and evaluated the patient. I reviewed the resident's note and discussed the case with the resident. I agree with the resident's findings and plan as documented. SUBJECTIVE: no pain, no fever or chills. No CP . no JUAREZ . feels fine and wants to go home OBJECTIVE: NAD. MMM, no facial droop CV: RRR, 3/6 SM all over precordium best heard over LLSB and apex with radiation to L axilla Lungs: CTAB Ext: no edema or erythema ASSESSMENT AND PLAN: 73 y/o lady with h/o HTN, HLP, and DM who presented with AMS and was found to have hypoglycemia and HTN emergency 1- HTN emergency: BP improved - cont labetalool 400 TID. - cont home dose lisinopril 20 BID . 2- Elevated trop :demand . - might need ischemic w/u as out pt . refer to card 3-CKD: records obtained form PCP office. Cr base line 2.4 - need close follow up and more work up by renal. will refer to Dr. crump [place] with BMP in 1 week 4- AMS/metabolic encephalopathy : due to hypoglycemia. resolved 5- Hypoglycemia : due to glipizide A1c 6.5 - at [place] will stop glipizide and place on januvia 50 mg daily per cr clearance - she was instructed to check her sugarat home. she has glucometer dispo : [place] home
--- NOTE | 2018-08-10 12:12 | DS ---
Physical Exam: SUBJECTIVE: Patient seen and examined. She is feeling good today. No overnight events. OBJECTIVE: Vital Signs Period Temp Pulse Resp BP Sys/L[place]vano Pulse Ox Last 24 Hr 97.5 F-98.0 F 53-62 13-18 127-168/64-83 100-100 PHYSICAL EXAM GENERAL: The patient is awake, alert, and fully oriented, in no acute distress. HEAD: Normal with no signs of trauma. EYES: PERRL, extraocular movements intact, sclera anicteric, conjunctiva clear. ENT: Oopharynx clear without exudates, moist mucous membranes. NECK: Trachea midline, full range of motion, supple. LUNGS: Breath sounds equal, clear to auscultation bilaterally, no wheezes, no crackles, no accessory muscle use. HEART: Regular rate and rhythm, S1, S2 without murmur, rub or gallop. ABDOMEN: Soft, nontender, nondistended, normoactive bowel sounds, no guarding, no rebound, no hepatosplenomegaly, no masses. EXTREMITIES: 2+ pulses, no edema. PSYCH: Normal mood, normal affect. SKIN: Warm, dry, normal turgor, no rashes. LABS Laboratory Results - last 24 hr 08/07/18 08/09/18 08/09/18 05:30 16:19 22:11 WBC RBC Hgb Hct MCV MCH MCHC RDW Plt Count MPV Absolute Neuts (auto) Neutrophils % Lymphocytes % Monocytes % Eosinophils % Basophils % Nucleated RBC % Sodium Potassium Chloride Carbon Dioxide Anion Gap BUN Creatinine Creat Clearance w eGFR POC Glucometer [id number] Random Glucose Calcium Phosphorus Magnesium Total Bilirubin AST ALT Alkaline Phosphatase Total Protein Total Protein (PEP) 6.9 Albumin Albumin (PEP) 3.4 Globulin 3.5 Albumin/Globulin Ratio 1.0 Beta Globulins 0.9 DAK[place] M-Mak Not observed 08/10/18 08/10/18 08/10/18 06:52 07:15 07:15 WBC 5.6 RBC 3.92 Hgb 11.0 Hct 34.1 MCV 86.9 MCH 28.0 MCHC 32.3 RDW 13.6 Plt Count 139 MPV 9.7 Absolute Neuts (auto) 3.5 Neutrophils % 62.3 Lymphocytes % 19.1 Monocytes % 9.4 Eosinophils % 8.2 H Basophils % 1.0 Nucleated RBC % 0 Sodium 141 Potassium 3.9 Chloride 109 H Carbon Dioxide 24 Anion Gap 8 BUN 33 H Creatinine 1.8 H Creat Clearance w eGFR 27.74 POC Glucometer 121 Random Glucose 123 H Calcium 8.2 L Phosphorus 3.5 Magnesium 2.2 Total Bilirubin 0.3 AST 59 H ALT 58 Alkaline Phosphatase 90 Total Protein 6.2 L Total Protein (PEP) Albumin 2.8 L Albumin (PEP) Globulin Albumin/Globulin Ratio Beta Globulins DAKOTA M-Mak 08/10/18 11:30 WBC RBC Hgb Hct MCV MCH MCHC RDW Plt Count MPV Absolute Neuts (auto) Neutrophils % Lymphocytes % Monocytes % Eosinophils % Basophils % Nucleated RBC % Sodium Potassium Chloride Carbon Dioxide Anion Gap BUN Creatinine Creat Clearance w eGFR POC Glucometer 174 Random Glucose Calcium Phosphorus Magnesium Total Bilirubin AST ALT Alkaline Phosphatase Total Protein Total Protein (PEP) Albumin Albumin (PEP) Globulin Albumin/Globulin Ratio Beta Globulins D[place] M-Mak HOSPITAL COURSE: Date of Admission:08/06/18 Patient is a 73 yo F with a PMHx of HTN, DM, HLD, who presented to the ED because of confusion and altered mental status. The daughter says patient was awake but not responsive to commands for a few hours. The daughter states her mother "froze" while opening [place] presents and was staring into space. Patient says her hypertension is usually well controlled with Lisinopril and HCTZ. She says this never happened to her before. Daughter denies shaking movements, tongue biting, loss of bladder control. Patient denies weakness, numbness, tingling, chest pain, palpitations, sob, edema, fevers. The patient had elevated BP 248/97 HR 49 on arrival to ED, stroke code was initiated, CT head was negative, glucose 22. She was given D50, Hydralazine 10 mg, nitro drip was started. Glucose improved to 122. The patient was admitted to ICU. She was also found to have elevated troponin 0.15, JESSE on CKD, hypokalemia, TSH 6.22. During her hospitalization, her BP was controlled with Labetalol and Lisinopil. She was transferred to medicine floor, troponinemia resolved. Her hypoglycemia resolved, Glipizide was held. The patient was discharged home on BP medications: Labetalol 400 TID, Lisinopril 20 mg BID, statin, Glipizide 2.5 qd ( informed to take it every morning with breakfast) and f/u with PCP next week. 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 Date of Discharge: 08/10/18 Minutes to complete discharge: 40 Discharge Summary Reason For Visit: HYPERTENSIVE EMERGENCY Current Active Problems JESSE (acute kidney injury) (Acute) Hypertensive emergency (Acute) Hypoglycemia (Acute) CKD (chronic kidney disease) (Chronic) Condition: Improved - Instructions Diet, Activity, Other Instructions: You were admitted because you had an episode of confusion. Your daughter brought you to the ED where you were noted to have very high blood pressure and very low blood sugar. You were given medications that has kept your blood pressure under control while you were here at the hospital. Please continue taking these medications as prescribed. Your blood sugar was also noted to be low when you initially came in. This was probably caused by your medication, Glipizide, which can cause hypoglycemia or low blood sugar. STOP taking Glipizide. You will be started on a new medication , Januvia, take it as prescribed. You are started on new medications. Please take the following medications as prescribed: 1. Labetalol 400mg three times a day. 2. Januvia 50 mg daily. STOP taking the following medications: 1. Glipizide 5mg 2. Hydrochlorothiazaide 25mg Continue taking your other home medications: 1. Lisinopril 20 mg twice a day. 2. Atorvastatin 10 mg daily at bedtime. Follow-ups: -Please follow-up with the kidney doctor within 1 week. If you do not have one, you may call Dr. Pham's office to schedule an appointment. ( important) . Before you visit him, please have your lab work done. Prescription was given. -Follow-up with your primary care physician (Dr. Vazquez) within 1 week. The office is aware of your admission, Dr. Vazquez will be back August 14. Please call their office at [phone] to schedule an appointment as soon as possible. IF you do decide to follow a primary doctor here in [place], you may call the resident medical clinic located at the [facility] to schedule an appointment with Dr. Falcon. - follow up with dr. 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 Referrals: [facility] – [place] [facility] [place] [Provider Group] Nelson Pham MD [Staff Physician] - 1 Week Morgan Damon MD [Staff Physician] - 1 Week Disposition: HOME - Home Medications Comprehensive Discharge Medication List: Ambulatory Orders Atorvastatin Ca [Lipitor] 10 mg PO HS #30 tablet 08/09/18 Labetalol HCl [Normodyne -] 400 mg PO TID #180 tablet 08/09/18 Lisinopril 20 mg PO BID #60 tablet 08/09/18 Sitagliptin Phosphate [Januvia] 50 mg PO DAILY #30 tablet 08/09/18 Miscellaneous Medical Supply [Outpatient Order] 1 each ASDIR #1 misc Problem List - Problems (1) JESSE (acute kidney injury) Code(s): N17.9 - ACUTE KIDNEY FAILURE, UNSPECIFIED (2) Hypertensive emergency Code(s): I16.1 - HYPERTENSIVE EMERGENCY (3) Hypoglycemia Code(s): E16.2 - HYPOGLYCEMIA, UNSPECIFIED (4) CKD (chronic kidney disease) Code(s): N18.9 - CHRONIC KIDNEY DISEASE, UNSPECIFIED This patient is new to me today: Yes Date on this admission: 08/12/18 Emergency Visit: Yes ED Registration Date: 08/06/18 Care time: The patient presented to the Emergency Department on the above date and was hospitalized for further evaluation of their emergent condition. Critical Care patient: No - Discharge Referral Referred to [facility] No
== END 2018-08-10 14:30 | disposition home or self-care (01) | DRG 305 ==
LOC: JER 12:27 → JERBED 14:52 → JICU 19:43 → J5S 08-09 20:16
PROVIDERS: ADMIT Internal Medicine; ATTEND Internal Medicine
DX: I16.1 Hypertensive emergency (principal); I24.8 Other forms of acute ischemic heart disease; N17.9 Acute kidney failure, unspecified; E09.649 Drug or chemical induced diabetes mellitus with hypoglycemia without coma; T38.3X5A Adverse effect of insulin and oral hypoglycemic [antidiabetic] drugs, initial encounter; Y92.89 Other specified places as the place of occurrence of the external cause; E78.5 Hyperlipidemia, unspecified; Z79.84 Long term (current) use of oral hypoglycemic drugs; I12.9 Hypertensive chronic kidney disease with stage 1 through stage 4 chronic kidney disease, or unspecified chronic kidney disease; N18.9 Chronic kidney disease, unspecified
CPT/HCPCS: 36415; 70450-TC; 71045-TC-FY; 76775-TC; 76856-TC; 80048; 80053; 81003; 82436; 82465; 82550; 82553; 82570; 82607; 82962; 83036; 83718; 83721; 83735; 84100; 84133; 84155; 84165; 84300; 84443; 84478; 84484; 84681; 85025; 85610; 85651; 86038; 86593; 86850; 86900; 86901; 87040; 87086; 93005; 93010; 93306-TC; 93880-TC; 97116-GP; 97161-GP; 99284-25; J7030

== ENCOUNTER 2023-07-25 07:47 | Inpatient (IN) | payer OTHER ==
[2023-07-25] MEDS ORDERED: LABETALOL HCL 5 MG/1 ML (100MG/20 ML VIAL) ONE (08:06)
[2023-07-25] MEDS ORDERED: LABETALOL HCL 5 MG/1 ML (100MG/20 ML VIAL) IVPUSH ONE ×3 (08:07→09:46)
[2023-07-25 08:35] VITALS: BMI 27.6
[2023-07-25 08:52] LABS: BASO % 0.6 % (0-2.0); EOS % 1.6 % (0-4.5); HEMATOCRIT 30.6 % (32.4-45.2); LYMPH % 7.1 % (8-40); MCH 29.5 pg (25.7-33.7); MCHC 32.7 g/dl (32.0-36.0); MEAN CELL VOLUME 90.2 fl (80-96); MEAN PLT VOLUME 10.1 fl (7.5-11.1); MONO % 4.8 % (3.8-10.2); NEUT % 85.9 % (42.8-82.8); PLATELET COUNT 130 10^3/uL (134-434); RDW 14.1 % (11.6-15.6); WHITE BLOOD COUNT 4.9 K/mm3 (4.0-10.0)
[2023-07-25 09:07] LABS: POTASSIUM 3.7 mmol/L (3.5-5.1)
[2023-07-25 09:09] LABS: CALCIUM 7.6 mg/dL (8.5-10.1)
[2023-07-25 09:10] LABS: ALBUMIN 3.1 g/dl (3.4-5.0); BLOOD UREA NITROGEN 59.6 mg/dL (7-18); MAGNESIUM 1.9 mg/dL (1.8-2.4)
[2023-07-25 09:14] LABS: TOT PROT 7.2 g/dl (6.4-8.2)
[2023-07-25 09:15] LABS: BILIRUBIN,TOTAL 0.3 mg/dL (0.2-1)
[2023-07-25] MEDS ORDERED: DOXAZOSIN MESYLATE 4 MG TABLET PO ONE (09:19)
[2023-07-25] MEDS ORDERED: LISINOPRIL 5 MG TABLET PO ONE (10:12)
[2023-07-25] MEDS ORDERED: LISINOPRIL 5 MG TABLET ONE (10:12)
[2023-07-25] MEDS ORDERED: NITROGLYCERIN 25MG/D5W 250ML 25 MG/250 ML ML IVPB SCH (11:00)
[2023-07-25] MEDS ORDERED: NITROGLYCERIN 25MG/D5W 250ML 25 MG/250 ML ML IVPB ONE (11:17)
[2023-07-25] MEDS ORDERED: hydrALAZINE HCL 20 MG/ML VIAL IVPUSH PRN (11:55)
[2023-07-25] MEDS ORDERED: NIFEdipine E.R. 30 MG TABLET PO SCH (14:30)
[2023-07-25] MEDS: MUPIROCIN 2% TOPICAL OINTMENT FOR DECOLONIZATION NS SCH ×2 (16:48→21:55)
[2023-07-25 18:09] LABS: EPI CELLS 13 /uL (0-25.1); HYALINE CASTS 0 /uL (0-3.1); URINE APPEARANCE CLEAR; URINE BACTERIA 12 /uL (0-1359); URINE BILIRUBIN NEGATIVE (NEGATIVE); URINE COLOR YELLOW; URINE GLUCOSE (UA) NEGATIVE (NEGATIVE); URINE KETONE NEGATIVE (NEGATIVE); URINE LEUK ESTERASE NEGATIVE (NEGATIVE); URINE NITRITE NEGATIVE (NEGATIVE); URINE PROTEIN 2+ (NEGATIVE); URINE RBC 14 /uL (0-23.9); URINE UROBILINOGEN 0.2 mg/dL (0.2-1.0); URINE WBC 5 /uL (0-25.8)
[2023-07-25] MEDS: LABETALOL HCL 100 MG TABLET (FP) PO SCH (21:55)
[2023-07-25] MEDS: ATORVASTATIN CA 40 MG TABLET (FP) PO SCH (21:55)
[2023-07-25] MEDS: HEPARIN NA (PORCINE) 5,000 UNITS/ML 1ML VIAL SQ SCH (21:55)
[2023-07-25] MEDS: CHLORHEXIDINE GLUCONATE 4% CLEANSER FOR DECOLONIZATION TP SCH (21:55)
[2023-07-26 07:10] LABS: BASO % 0.7 % (0-2.0); EOS % 5.2 % (0-4.5); HEMATOCRIT 25.5 % (32.4-45.2); HEMOGLOBIN 8.6 GM/dL (10.7-15.3); MCH 29.9 pg (25.7-33.7); MCHC 33.6 g/dl (32.0-36.0); MEAN CELL VOLUME 88.9 fl (80-96); MEAN PLT VOLUME 10.2 fl (7.5-11.1); MONO % 9.6 % (3.8-10.2); NEUT % 66.5 % (42.8-82.8); PLATELET COUNT 112 10^3/uL (134-434); RBC 2.87 M/mm3 (3.60-5.2); RDW 13.9 % (11.6-15.6); WHITE BLOOD COUNT 5.9 K/mm3 (4.0-10.0)
[2023-07-26 07:33] LABS: POTASSIUM 3.5 mmol/L (3.5-5.1)
[2023-07-26 07:34] LABS: ACTIVATED PTT 30.7 SECONDS (25.2-36.5); INR 1.26 (0.83-1.09); PROTHROMBIN TIME (PATIENT) 14.6 SEC (9.7-13.0)
[2023-07-26 07:39] LABS: ALBUMIN 2.7 g/dl (3.4-5.0); CALCIUM 7.5 mg/dL (8.5-10.1)
[2023-07-26 07:40] LABS: BLOOD UREA NITROGEN 61.3 mg/dL (7-18); MAGNESIUM 1.8 mg/dL (1.8-2.4)
[2023-07-26 07:42] LABS: CREATININE 4.1 mg/dL (0.55-1.3); PHOSPHOROUS 3.4 mg/dL (2.5-4.9)
[2023-07-26 07:44] LABS: BILIRUBIN,TOTAL 0.3 mg/dL (0.2-1); TOT PROT 6.2 g/dl (6.4-8.2)
[2023-07-26] MEDS: ASPIRIN COATED 81 MG TABLET.EC PO SCH (09:06)
[2023-07-26] MEDS: MUPIROCIN 2% TOPICAL OINTMENT FOR DECOLONIZATION NS SCH ×2 (09:06→21:46)
[2023-07-26] MEDS: NIFEdipine E.R. 30 MG TABLET PO SCH (09:06)
[2023-07-26] MEDS: LABETALOL HCL 100 MG TABLET (FP) PO SCH ×2 (09:06→21:47)
[2023-07-26] MEDS: HEPARIN NA (PORCINE) 5,000 UNITS/ML 1ML VIAL SQ SCH ×2 (09:06→21:46)
[2023-07-26] MEDS ORDERED: POTASSIUM CHLORIDE 10 MEQ in SODIUM CHLORIDE 0.45% 1,000 ML IVPB SCH (09:30)
[2023-07-26 15:05] LABS: RETICULOCYTES 0.49 % (0.5-1.5)
[2023-07-26] MEDS: CHLORHEXIDINE GLUCONATE 4% CLEANSER FOR DECOLONIZATION TP SCH (21:46)
[2023-07-26] MEDS: ATORVASTATIN CA 40 MG TABLET (FP) PO SCH (21:47)
[2023-07-27 07:30] LABS: HEMATOCRIT 26.5 % (32.4-45.2); HEMOGLOBIN 8.7 GM/dL (10.7-15.3); MCH 29.6 pg (25.7-33.7); MCHC 32.8 g/dl (32.0-36.0); MEAN PLT VOLUME 10.9 fl (7.5-11.1); PLATELET COUNT 115 10^3/uL (134-434); RBC 2.95 M/mm3 (3.60-5.2); RDW 14.3 % (11.6-15.6); WHITE BLOOD COUNT 5.3 K/mm3 (4.0-10.0)
[2023-07-27 07:54] LABS: POTASSIUM 4.1 mmol/L (3.5-5.1)
[2023-07-27 08:02] LABS: ALBUMIN 2.7 g/dl (3.4-5.0); BLOOD UREA NITROGEN 59.4 mg/dL (7-18)
[2023-07-27 08:03] LABS: BILIRUBIN,TOTAL 0.4 mg/dL (0.2-1); TOT PROT 6.3 g/dl (6.4-8.2)
[2023-07-27 08:05] LABS: CALCIUM 7.7 mg/dL (8.5-10.1)
[2023-07-27] MEDS: ASPIRIN COATED 81 MG TABLET.EC PO SCH (09:43)
[2023-07-27] MEDS: MUPIROCIN 2% TOPICAL OINTMENT FOR DECOLONIZATION NS SCH ×2 (09:43→22:21)
[2023-07-27] MEDS: HEPARIN NA (PORCINE) 5,000 UNITS/ML 1ML VIAL SQ SCH ×2 (09:44→22:18)
[2023-07-27] MEDS: LABETALOL HCL 100 MG TABLET (FP) PO SCH ×2 (09:44→22:18)
[2023-07-27] MEDS: NIFEdipine E.R. 30 MG TABLET PO SCH (09:44)
[2023-07-27 21:11] LABS: ANTIGLOMERULAR BASEMENT MEN.AB <0.2 units (0.0-0.9)
[2023-07-27] MEDS: ATORVASTATIN CA 40 MG TABLET (FP) PO SCH (22:18)
[2023-07-27] MEDS: CHLORHEXIDINE GLUCONATE 4% CLEANSER FOR DECOLONIZATION TP SCH (22:21)
[2023-07-28 04:07] LABS: ANTI-DNAse B 149 U/mL (0-120)
[2023-07-28] MEDS ORDERED: hydrALAZINE HCL 20 MG/ML VIAL IVPUSH PRN (08:16)
[2023-07-28] MEDS: ASPIRIN COATED 81 MG TABLET.EC PO SCH (09:36)
[2023-07-28] MEDS: NIFEdipine E.R 60 MG TABLET PO SCH (09:36)
[2023-07-28] MEDS: PANTOPRAZOLE 40 MG TABLET PO SCH (09:36)
[2023-07-28] MEDS: LABETALOL HCL 100 MG TABLET (FP) PO SCH ×2 (09:37→21:13)
[2023-07-28] MEDS: HEPARIN NA (PORCINE) 5,000 UNITS/ML 1ML VIAL SQ SCH ×2 (09:37→21:13)
[2023-07-28 09:56] LABS: BASO % 0.7 % (0-2.0); EOS % 6.4 % (0-4.5); HEMOGLOBIN 9.4 GM/dL (10.7-15.3); LYMPH % 15.8 % (8-40); MCHC 32.3 g/dl (32.0-36.0); MEAN CELL VOLUME 89.7 fl (80-96); MEAN PLT VOLUME 10.6 fl (7.5-11.1); NEUT % 68.1 % (42.8-82.8); PLATELET COUNT 127 10^3/uL (134-434); RBC 3.23 M/mm3 (3.60-5.2); RDW 14.6 % (11.6-15.6); WHITE BLOOD COUNT 4.5 K/mm3 (4.0-10.0)
[2023-07-28 10:14] LABS: POTASSIUM 4.3 mmol/L (3.5-5.1)
[2023-07-28 10:16] LABS: CALCIUM 7.9 mg/dL (8.5-10.1)
[2023-07-28 10:17] LABS: ALBUMIN 2.8 g/dl (3.4-5.0); BLOOD UREA NITROGEN 60.4 mg/dL (7-18)
[2023-07-28 10:20] LABS: CREATININE 3.9 mg/dL (0.55-1.3)
[2023-07-28 10:21] LABS: BILIRUBIN,TOTAL 0.6 mg/dL (0.2-1)
[2023-07-28 10:22] LABS: TOT PROT 6.7 g/dl (6.4-8.2)
[2023-07-28] MEDS: LISINOPRIL 5 MG TABLET PO SCH (14:13)
[2023-07-28] MEDS: ATORVASTATIN CA 40 MG TABLET (FP) PO SCH (21:16)
[2023-07-29] MEDS: LISINOPRIL 5 MG TABLET PO SCH (09:41)
[2023-07-29] MEDS: ASPIRIN COATED 81 MG TABLET.EC PO SCH (09:41)
[2023-07-29] MEDS: LABETALOL HCL 100 MG TABLET (FP) PO SCH ×2 (09:41→21:37)
[2023-07-29] MEDS: HEPARIN NA (PORCINE) 5,000 UNITS/ML 1ML VIAL SQ SCH ×2 (09:41→21:37)
[2023-07-29] MEDS: NIFEdipine E.R 60 MG TABLET PO SCH ×2 (09:42→21:41)
[2023-07-29] MEDS: PANTOPRAZOLE 40 MG TABLET PO SCH (09:42)
[2023-07-29] MEDS ORDERED: hydrALAZINE HCL 20 MG/ML VIAL IVPB PRN (14:31)
[2023-07-29] MEDS: ATORVASTATIN CA 40 MG TABLET (FP) PO SCH (21:36)
[2023-07-30] MEDS: PANTOPRAZOLE 40 MG TABLET PO SCH (10:01)
[2023-07-30] MEDS: ASPIRIN COATED 81 MG TABLET.EC PO SCH (10:01)
[2023-07-30] MEDS: LABETALOL HCL 100 MG TABLET (FP) PO SCH (10:01)
[2023-07-30] MEDS: LISINOPRIL 5 MG TABLET PO SCH (10:01)
[2023-07-30] MEDS: NIFEdipine E.R 60 MG TABLET PO SCH (10:01)
[2023-07-30] MEDS: HEPARIN NA (PORCINE) 5,000 UNITS/ML 1ML VIAL SQ SCH (10:02)
[2023-07-30 10:09] LABS: BASO % 0.9 % (0-2.0); EOS % 7.9 % (0-4.5); HEMATOCRIT 27.5 % (32.4-45.2); HEMOGLOBIN 8.9 GM/dL (10.7-15.3); MCH 28.9 pg (25.7-33.7); MCHC 32.3 g/dl (32.0-36.0); MEAN CELL VOLUME 89.3 fl (80-96); MEAN PLT VOLUME 10.9 fl (7.5-11.1); MONO % 9.5 % (3.8-10.2); NEUT % 64.7 % (42.8-82.8); PLATELET COUNT 138 10^3/uL (134-434); RBC 3.08 M/mm3 (3.60-5.2); RDW 14.5 % (11.6-15.6); WHITE BLOOD COUNT 4.8 K/mm3 (4.0-10.0)
[2023-07-30 10:30] LABS: POTASSIUM 4.8 mmol/L (3.5-5.1)
[2023-07-30 10:42] LABS: CALCIUM 8.6 mg/dL (8.5-10.1)
[2023-07-30 10:43] LABS: ALBUMIN 2.8 g/dl (3.4-5.0); BLOOD UREA NITROGEN 67.6 mg/dL (7-18)
[2023-07-30 10:46] LABS: CREATININE 4.2 mg/dL (0.55-1.3)
[2023-07-30 10:47] LABS: BILIRUBIN,TOTAL 0.7 mg/dL (0.2-1); TOT PROT 6.7 g/dl (6.4-8.2)
[2023-07-30 12:14] VITALS: RESP 20; TEMP 97.8
[2023-07-30 15:03] VITALS: BP 156/82; PULSE 48
[2023-07-30 15:07] LABS: ATYPICAL pANCA <1:20 titer (Neg:<1:20); C-ANCA <1:20 titer (Neg:<1:20)
== END 2023-07-30 19:13 | disposition home or self-care (01) | DRG 305 ==
LOC: JER 07:47 → JERBED 12:27 → JICU 13:28 → J8W 07-27 20:38
PROVIDERS: ADMIT Internal Medicine; ATTEND Internal Medicine
DX: I16.1 Hypertensive emergency (principal); N17.9 Acute kidney failure, unspecified; I24.89 Other forms of acute ischemic heart disease; D69.6 Thrombocytopenia, unspecified; N18.30 Chronic kidney disease, stage 3 unspecified; I12.9 Hypertensive chronic kidney disease with stage 1 through stage 4 chronic kidney disease, or unspecified chronic kidney disease; E78.5 Hyperlipidemia, unspecified
CPT/HCPCS: 36415; 71045-TC-FY; 76775-TC; 80053; 81003; 82570; 82728; 82962; 83036; 83516; 83520; 83540; 83550; 83615; 83735; 84100; 84156; 84436; 84443; 84466; 84484; 85025; 85027; 85045; 85610; 85730; 86038; 86160; 86215; 86256; 87635; 93005; 93010; 93306-TC; 97116-GP; 97163-GP; 99291; J1644

== ENCOUNTER 2023-12-05 04:16 | Day surgery (SDC) | payer OTHER ==
[2023-11-29 12:21] VITALS: BMI 23.6
[2023-12-05] MEDS ORDERED: DEXTROSE 50%-WATER 25 GM/50 ML DISP.SYRIN ONE ×2 (08:42→12:30)
[2023-12-05] MEDS: DEXTROSE 50%-WATER - 25 GM/50 ML VIAL IVPUSH ONE (08:45)
[2023-12-05] MEDS ORDERED: MIDAZOLAM HCL 2 MG/2 ML SINGLE DOSE VIAL ONE (09:27)
[2023-12-05] MEDS ORDERED: LIDOCAINE HCL 1%, 10 MG/ML (20ML VIAL) ONE (10:03)
[2023-12-05] MEDS ORDERED: hydrALAZINE HCL 20 MG/ML VIAL ONE (10:26)
[2023-12-05] MEDS ORDERED: FENTANYL CITRATE/PF 50 MCG/ML VIAL ONE (10:31)
[2023-12-05] MEDS ORDERED: PROPOFOL 20 ML ONE ×2 (10:31→10:35)
[2023-12-05] MEDS: ceFAZolin SODIUM 1 GM VIAL IVPB ONE (10:38)
[2023-12-05] MEDS: LIDOCAINE HCL 1%, 10 MG/ML (20ML VIAL) NR ONE (10:42)
[2023-12-05] MEDS ORDERED: ONDANSETRON 4 MG/2 ML VIAL IVPUSH PRN (11:40)
[2023-12-05] MEDS: DEXTROSE 50%-WATER 25 GM/50 ML DISP.SYRIN IVPUSH ONE (12:33)
[2023-12-05 13:42] VITALS: RESP 20; TEMP 97.3
[2023-12-05 14:56] VITALS: BP 118/58; PULSE 55
== END 2023-12-05 14:46 | disposition home or self-care (01) ==
LOC: JASU-SURG 04:16
PROVIDERS: ATTEND Surgery
PROC: 03180ZD Bypass Left Brachial Artery to Upper Arm Vein, Open Approach (ICD-10-PCS; principal; 2023-12-05 10:00)
DX: E11.22 Type 2 diabetes mellitus with diabetic chronic kidney disease (principal); N18.4 Chronic kidney disease, stage 4 (severe)
CPT/HCPCS: 82962; 94760

== ENCOUNTER 2024-05-29 04:41 | Day surgery (SDC) | payer OTHER ==
[2024-05-27 14:32] VITALS: BMI 25.4
[2024-05-29] MEDS ORDERED: LIDOCAINE HCL 1%, 10 MG/ML (20ML VIAL) ONE (10:08)
[2024-05-29] MEDS ORDERED: HEPARIN NA (PORCINE) 5,000 UNITS/ML 1ML VIAL ONE ×2 (10:09→11:08)
[2024-05-29] MEDS ORDERED: PROPOFOL 20 ML ONE (10:27)
[2024-05-29] MEDS ORDERED: MIDAZOLAM HCL 2 MG/2 ML SINGLE DOSE VIAL ONE (10:27)
[2024-05-29] MEDS ORDERED: PROPOFOL 40 ML ONE (10:34)
[2024-05-29] MEDS: LIDOCAINE HCL 1%, 10 MG/ML (50 mL VIAL) INF ONE (10:55)
[2024-05-29] MEDS ORDERED: ACETAMINOPHEN WITH CODEINE 300MG/30MG TABLET PO PRN (11:36)
[2024-05-29 13:16] VITALS: TEMP 97.3
[2024-05-29 14:18] VITALS: BP 128/65; PULSE 57; RESP 20
== END 2024-05-29 14:42 | disposition home or self-care (01) ==
LOC: JASU-SURG 04:41
PROVIDERS: ATTEND Surgery
PROC: 057F3ZZ Dilation of Left Cephalic Vein, Percutaneous Approach (ICD-10-PCS; 2024-05-29)
PROC: 057A3ZZ Dilation of Left Brachial Vein, Percutaneous Approach (ICD-10-PCS; principal; 2024-05-29 09:30)
DX: I12.0 Hypertensive chronic kidney disease with stage 5 chronic kidney disease or end stage renal disease (principal); E11.22 Type 2 diabetes mellitus with diabetic chronic kidney disease; N18.6 End stage renal disease
CPT/HCPCS: 76000-TC-FY; 82962; 94760; J1644